=== PATIENT | female | born 1940 | race Caucasian/White ===

== ENCOUNTER 2023-06-25 14:28 | Outpatient (AMB) | payer MEDICARE, OTHER, SELFPAY ==
--- NOTE | 2023-06-25 15:29 | AM.OFFWIN_ITS ---
Intake Intake Visit Reasons: EST/possiple UTI? (lobby) Intake Note: pt is here for c/o possible uti. patient refused vitals and unabe to give urine sample Patient Tobacco Use Status: Never used Tobacco Allergies camphor [CAMPHOR] Allergy (Severe, Verified 06/26/23 06:10) SWELLING, swelling glands, extreme dizziness, swelling glands, extreme dizziness Antihistamines - Alkylamine [ANTIHISTAMINES - ALKYLAMINE] Allergy (Unknown, Verified 06/26/23 06:10) TACHYCARDIA erythromycin base [ERYTHROMYCIN BASE] Allergy (Unknown, Verified 06/26/23 06:10) SWELLING NSAIDS (Non-Steroidal Anti-Inflamma [NSAIDS (NON-STEROIDAL ANTI-INFLAMMA] Allergy (Unknown, Verified 06/26/23 06:10) NOT TO TAKE penicillin V Allergy (Unknown, Verified 06/26/23 06:10) itching Penicillins [PENICILLINS] Allergy (Unknown, Verified 06/26/23 06:10) ITCHY ALL ANTIBIOTICS Allergy (Unknown, Uncoded 06/26/23 06:10) UNKNOWN All antibiotics Allergy (Unknown, Uncoded 06/26/23 06:10) caused Meniere's disease, very probable cause of temporal ar antihistamine Allergy (Unknown, Uncoded 06/26/23 06:10) contraindicated with tachycardia Erythromycin Allergy (Unknown, Uncoded 06/26/23 06:10) face swelling NSAIDs Allergy (Unknown, Uncoded 06/26/23 06:10) contraindicated with Meniere's disease Medication List - Last Reconciled 06/26/23 by Julio Laurent MD diclofenac sodium 1% 2 - 3 grams topical BID PRN epinephrine IM fluticasone propionate 50 mcg/actuation 1 - 2 sprays intranasal DAILY PRN Do you need a note to return to daycare/school/sports/work: Yes PFSH Medical History (Updated 11/22/22 @ 06:48 by Bertha Burger, KELECHI) Smoker Chronic back pain Coronary artery disease Peripheral artery disease Lung nodules SVT (supraventricular tachycardia) Allergic rhinitis Meniere disease Temporal arteritis Surgical History (Updated 11/22/22 @ 06:48 by Bertha Burger, KELECHI) History of dental surgery History of colonoscopy Social History Patient Tobacco Use Status: Never used Tobacco Results AMB Urinalysis, Automated UA Leukoctes 15 Noa/uL Last Edit by Dari Adam, RANDI on 06/25/23 16:24 UA Nitrite Negative Last Edit by Dari Adam, RANDI on 06/25/23 16:24 UA Urobilinogen 0.2 mg/dL Last Edit by Dari Adam, BACTERIOLOGY RESEARCH ASSISTANT on 06/25/23 16:24 UA Protein 0 mg/dL Last Edit by Dari Adam, BACTERIOLOGY RESEARCH ASSISTANT on 06/25/23 16:24 UA pH 6.0 Last Edit by Dari Adam, BACTERIOLOGY RESEARCH ASSISTANT on 06/25/23 16:24 UA Blood 0 Carlos/uL Last Edit by Dari Adam, BACTERIOLOGY RESEARCH ASSISTANT on 06/25/23 16:24 UA Specific [place] 1.015 Last Edit by Dari Adam, RANDI on 06/25/23 16:24 UA Ketone Negative Last Edit by Dari Adam, BACTERIOLOGY RESEARCH ASSISTANT on 06/25/23 16:24 UA Bilirubin 0 mg/dL Last Edit by Dari Adam, BACTERIOLOGY RESEARCH ASSISTANT on 06/25/23 16:24 UA Glucose 0 mg/dL Last Edit by Dari Adam, BACTERIOLOGY RESEARCH ASSISTANT on 06/25/23 16:24 Results Reviewed Results Reviewed: Laboratory Last Values Urine pH (Auto) 6.0 06/25/23 16:22 Specific [place] (Auto) 1.015 06/25/23 16:22 Urine Protein (Auto) 0 mg/dL 06/25/23 16:22 Glucose (UA)(Auto) 0 mg/dL 06/25/23 16:22 Urine Ketones (Auto) Negative 06/25/23 16:22 Urine Blood (Auto) 0 Carlos/uL 06/25/23 16:22 Urine Nitrite (Auto) Negative 06/25/23 16:22 Urine Bilirubin (Auto) 0 mg/dL 06/25/23 16:22 Urine Urobilinogen (Auto) 0.2 mg/dL 06/25/23 16:22 Leukocyte Esterase (Auto) 15 Noa/uL 06/25/23 16:22 Assessment & Plan Assessment & Plan Orders: Orders AMB Urinalysis Automated 06/25/23 Z13.9 - Encounter for screening, unspecified Coding
--- NOTE | 2023-06-25 15:38 | AM.OFFWIN_ITS ---
Intake Intake Visit Reasons: EST/possiple UTI? (alon) Intake Note: pt is here today for possible UTI started Patient Tobacco Use Status: Never used Tobacco Allergies camphor [CAMPHOR] Allergy (Severe, Verified 06/26/23 06:10) SWELLING, swelling glands, extreme dizziness, swelling glands, extreme dizziness Antihistamines - Alkylamine [ANTIHISTAMINES - ALKYLAMINE] Allergy (Unknown, Verified 06/26/23 06:10) TACHYCARDIA erythromycin base [ERYTHROMYCIN BASE] Allergy (Unknown, Verified 06/26/23 06:10) SWELLING NSAIDS (Non-Steroidal Anti-Inflamma [NSAIDS (NON-STEROIDAL ANTI-INFLAMMA] Allergy (Unknown, Verified 06/26/23 06:10) NOT TO TAKE penicillin V Allergy (Unknown, Verified 06/26/23 06:10) itching Penicillins [PENICILLINS] Allergy (Unknown, Verified 06/26/23 06:10) ITCHY ALL ANTIBIOTICS Allergy (Unknown, Uncoded 06/26/23 06:10) UNKNOWN All antibiotics Allergy (Unknown, Uncoded 06/26/23 06:10) caused Meniere's disease, very probable cause of temporal ar antihistamine Allergy (Unknown, Uncoded 06/26/23 06:10) contraindicated with tachycardia Erythromycin Allergy (Unknown, Uncoded 06/26/23 06:10) face swelling NSAIDs Allergy (Unknown, Uncoded 06/26/23 06:10) contraindicated with Meniere's disease Medication List - Last Reconciled 06/26/23 by Julio Laurent MD diclofenac sodium 1% 2 - 3 grams topical BID PRN epinephrine IM fluticasone propionate 50 mcg/actuation 1 - 2 sprays intranasal DAILY PRN Do you need a note to return to daycare/school/sports/work: No HPI EST/possiple UTI? (alon) HPI Details 82 yr old female presents to the office for a sick visit. She reports she has not seen her PCP for a few years. Reporting increasing frequency of urination since the past few days. She reports that it happens in spurts. Goes to the bathroom often for a few hours and then sx subside. Not waking up at night. No fever or chills. No burning sx. Low back pain. [facility] Medical History (Updated 11/22/22 @ 06:48 by Bertha Burger RN) Smoker Chronic back pain Coronary artery disease Peripheral artery disease Lung nodules SVT (supraventricular tachycardia) Allergic rhinitis Meniere disease Temporal arteritis Surgical History (Updated 11/22/22 @ 06:48 by Bertha Burger RN) History of dental surgery History of colonoscopy Social History Patient Tobacco Use Status: Never used Tobacco Physical Exam Const General: cooperative and healthy appearing Nutritional Appearance: well nourished Orientation/consciousness: patient oriented x3 Limitations: no limitations HEENT Head: Yes normal to inspection Eyes General: appearance normal, both eyes and all related structures Neck Neck: Yes normal visual inspection Chest Chest palpation & inspection: normal palpation of entire chest wall Resp Effort & Inspection: normal respiratory effort General: Yes bladder normal to inspection, Yes bladder normal to palpation and Yes no CVA tenderness Bimanual exam- vagina & uterus: bladder normal to palpation Back/Spine/Pelvis Back: no CVA tenderness Neuro General: patient oriented x3 Results AMB Urinalysis, Automated UA Leukoctes 15 Noa/uL Last Edit by Dari Adam CMA on 06/25/23 16:24 UA Nitrite Negative Last Edit by Dari Adam CMA on 06/25/23 16:24 UA Urobilinogen 0.2 mg/dL Last Edit by Dari Adam CMA on 06/25/23 16:24 UA Protein 0 mg/dL Last Edit by Dari Adam CMA on 06/25/23 16:24 UA pH 6.0 Last Edit by Dari Adam CMA on 06/25/23 16:24 UA Blood 0 Carlos/uL Last Edit by Dari Adam CMA on 06/25/23 16:24 UA Specific [place] 1.015 Last Edit by Dari Adam CMA on 06/25/23 16:24 UA Ketone Negative Last Edit by Dari Adam CMA on 06/25/23 16:24 UA Bilirubin 0 mg/dL Last Edit by Dari Adam CMA on 06/25/23 16:24 UA Glucose 0 mg/dL Last Edit by Dari Adam CMA on 06/25/23 16:24 Results Reviewed Results Reviewed: Laboratory Last Values Urine pH (Auto) 6.0 06/25/23 16:22 Specific [place] (Auto) 1.015 06/25/23 16:22 Urine Protein (Auto) 0 mg/dL 06/25/23 16:22 Glucose (UA)(Auto) 0 mg/dL 06/25/23 16:22 Urine Ketones (Auto) Negative 06/25/23 16:22 Urine Blood (Auto) 0 Carlos/uL 06/25/23 16:22 Urine Nitrite (Auto) Negative 06/25/23 16:22 Urine Bilirubin (Auto) 0 mg/dL 06/25/23 16:22 Urine Urobilinogen (Auto) 0.2 mg/dL 06/25/23 16:22 Leukocyte Esterase (Auto) 15 Noa/uL 06/25/23 16:22 Assessment & Plan Assessment & Plan (1) Urinary tract infection: Code(s): N39.0 - Urinary tract infection, site not specified Plan: Urinalysis shows only a few WBC. Patient is very reluctant to start antibiotics for a variety of reasons. I advised her to increase fluid intake. She should follow up with her PCP and get bw done. Orders: Orders AMB Urinalysis Automated 06/25/23 Z13.9 - Encounter for screening, unspecified Coding Level of Care Code Est Pt Level 3 (05875) Diagnoses Urinary tract infection N39.0
== END 2023-06-25 16:32 | disposition home or self-care (01) ==
PROVIDERS: PCP Internal Medicine; Visit Provider Internal Medicine
DX: R35.0 Frequency of micturition (principal)
CPT/HCPCS: 81003; 99213

== ENCOUNTER 2023-07-03 07:52 | Outpatient (AMB) | payer MEDICARE, OTHER, SELFPAY ==
[2023-07-03 08:07] VITALS: BP 138/80; PULSE 105; O2SAT 97; BMI 26.0
--- NOTE | 2023-07-03 08:07 | A.OFFPC_ITS ---
Vital Signs 07/03/23 08:07 07/03/23 08:56 Height 5 ft 1.5 in Weight 140 lb BMI 26.0 BP 138/80 Blood Pressure Location Lt brachial Position Sitting Pulse 105 H 88 Pulse Source Pulse Oximeter Palpation Pulse Oximetry (%) 97 Oxygen Delivery Method Room Air Intake Visit Reasons: New PT F/U from Walk-In visit Intake Note: Pt is here today as a New Patient to est care to f/u from [place] Allergies camphor [CAMPHOR] Allergy (Severe, Verified 07/08/23 16:31) SWELLING, swelling glands, extreme dizziness, swelling glands, extreme dizziness Antihistamines - Alkylamine [ANTIHISTAMINES - ALKYLAMINE] Allergy (Unknown, Verified 07/08/23 16:31) TACHYCARDIA erythromycin base [ERYTHROMYCIN BASE] Allergy (Unknown, Verified 07/08/23 16:31) SWELLING NSAIDS (Non-Steroidal Anti-Inflamma [NSAIDS (NON-STEROIDAL ANTI-INFLAMMA] Allergy (Unknown, Verified 07/08/23 16:31) NOT TO TAKE penicillin V Allergy (Unknown, Verified 07/08/23 16:31) itching Penicillins [PENICILLINS] Allergy (Unknown, Verified 07/08/23 16:31) ITCHY ALL ANTIBIOTICS Allergy (Unknown, Uncoded 07/08/23 16:31) UNKNOWN All antibiotics Allergy (Unknown, Uncoded 07/08/23 16:31) caused Meniere's disease, very probable cause of temporal ar antihistamine Allergy (Unknown, Uncoded 07/08/23 16:31) contraindicated with tachycardia Erythromycin Allergy (Unknown, Uncoded 07/08/23 16:31) face swelling NSAIDs Allergy (Unknown, Uncoded 07/08/23 16:31) contraindicated with Meniere's disease Medication List - Last Reconciled 07/08/23 by GIA Jesus epinephrine IM Tobacco use date assessed: 07/03/23 Fall risk assessment: No Falls in past year Last assessed Fall Risk: 07/03/23 Dental Screening Dental Screen Date: 07/03/23 Did you have a dental visit in the last 12 months?: No Was dental information given to patient?: Patient declined HPI HPI Comments History of Present Illness Details Patient is a 82-year-old female in today to establish care. She was last seen in the walk-in 2 weeks prior to this appointment with symptoms of increased urinary frequency, and suprapubic pain. Patient declined medications at the time, instead wanted to utilize natural techniques drinking water and cranberry juice. At the time of appointment today the patient states she has no more urinary complaints. She did state intermittent diarrhea and constipation, and has a history of IBS. At the time of appointment patient does not want immunizations, colonoscopy, OBGYN, bone density, mammogram. Patient states she is interested in meeting with a dietitian to go over non inflammatory diet. Her last appointment with a primary care provider was 2 years prior. [facility] Medical History (Updated 07/08/23 @ 16:35 by GIA Jesus) Smoker Chronic back pain Coronary artery disease Peripheral artery disease Lung nodules SVT (supraventricular tachycardia) Allergic rhinitis Meniere disease Temporal arteritis Surgical History History of dental surgery History of colonoscopy Social History Housing: Apartment Patient Tobacco Use Status: Current everyday Tobacco user Tobacco use type: Cigarette e-Cigarette/Vaping Use: Never Used service: No Current occupational status: retired Cognitive needs: No Hearing needs: No Vision needs: Yes Questionnaire PHQ-9 Over the last 2 weeks, how often have you been bothered by any of the following problems? 1. Little interest or pleasure in doing things: not at all 2. Feeling down, depressed, or hopeless: not at all 3. Trouble falling or staying asleep, or sleeping too much: not at all 4. Feeling tired or having little energy: not at all 5. Poor appetite or overeating: not at all 6. Feeling bad about yourself - or that you are a failure or have let yourself or your family down: not at all 7. Trouble concentrating on things, such as reading the newspaper or watching television: not at all 8. Moving or speaking so slowly that other people could have noticed. Or the opposite - being so fidgety or restless that you have been moving around a lot more than usual: not at all 9. Thoughts that you would be better off or of hurting yourself in some way: not at all Total score: 0 Depression Screening Interpretation: Negative Depression Screening Done: Yes 01643 - PHQ-9 Billing: Yes Source: Developed by Drs. Valeriy Hernandez, Amina Plasencia, Sharan Pelletier and colleagues, with an educational ana from [employer]. Thrive Questionnaire Date Thrive assessed: 07/03/23 I am a: Patient What is your living situation today?: I have a steady place to live Within the past 12 months, did the food you bought not last and you didn't have the money to get more?: Never true Within the past 12 months, did you worry whether your food would run out before you got money to buy more?: Never true Do you have trouble paying for medicines?: No Do you have trouble getting transportation to medical appointments?: No Do you have trouble paying your heating and electricity bill?: No Do you have trouble taking care of your child, family member or friend?: No Do you have trouble with day-to-day activities such as bathing, preparing meals, shopping, managing finances, etc.?: No Are you currently unemployed and looking for a job?: No Are you interested in more education?: No AUDIT C Alcohol Use Questionnaire (AUDIT-C) 1. How often do you have a drink containing alcohol?: Never Total Score: 0 EDEL-7 AMB Questionnaire EDEL-7 Date EDEL - 7 assessed: 07/03/23 Feeling nervous, anxious, or on edge: 0 = Not at all Not being able to stop or control worryin = Not at all Worrying too much about different things: 0 = Not at all Trouble relaxin = Not at all Being so restless that it is hard to sit still: 0 = Not at all Becoming easily annoyed or irritable: 0 = Not at all Feeling afraid as if something awful might happen: 0 = Not at all Total EDEL-7 score (0-4 normal; 5-9 mild; 10-14 moderate; 15-21 severe): 0 Source: Developed by Drs. Valeriy Hernandez, Amina Plasencia, Sharan Pelletier and colleagues, with an educational ana from [employer]. EDEL-7 Assessment Billing EDEL-7 Assessment Tool: EDEL-7 Assessment 49781 Review of Systems Const Details: Constitutional : No Weight loss, No Fever, No Chills, No Fatigue, No Malaise ENT/Mouth : No sore throat, No Rhinorrhea. Patient Admits hearing loss due to meniere's disease. Eyes: No Eye Pain, No Swelling, No Redness Cardiovascular : No Chest Pain, No SOB, No Dyspnea on Exertion, No Orthopnea, No Edema, No Palpitations Respiratory : No Cough, No Sputum, No Wheezing Gastrointestinal : No Nausea, No Vomiting, Occasional Diarrhea, Ocassional Constipation, No abdominal Pain, No Hematochezia, No Melena Genitourinary : No Dysuria, No Urinary Frequency, No Hematuria, Musculoskeletal : No joint pain, No Myalgias, No Joint Swelling Skin : No Skin Lesions, No rash Neuro : No Weakness, No Numbness, No Dizziness, No Headache Psych : No Anxiety/Panic, No Depression Heme/Lymph: No Bruising, No Bleeding,No Lymphadenopathy Endocrine : No Polyuria, No Polydipsia All other systems reviewed and are negative Physical exam (Primary Care) Vital Signs: Last Vital Signs Pulse 88 07/03/23 08:56 BP 138/80 07/03/23 08:07 Pulse Ox 97 07/03/23 08:07 Oxygen Delivery Method Room Air 07/03/23 08:07 Care Plan Goal for BP management: Patient states that her blood pressure at home is usually lower. Patient instructed to take blood pressure readings at home. Next steps: The patient had pulse recheck, 88 beats per minute. BMI result Body Mass Index 26.0 Tobacco/Smoking Status: Tobacco use Status Tobacco use date assessed 07/03/23 07/03/23 08:14 Patient Tobacco Use Status Current everyday Tobacco 07/03/23 08:14 Tobacco use type Cigarette 07/03/23 08:14 e-Cigarette/Vaping Use Never Used 07/03/23 08:14 PHQ-9: PHQ-9 Score PHQ-9: Total score 0 07/08/23 09:41 Depression Screening Interpretation: Negative Thrive Assessment: Date of Thrive Assessment Date Thrive assessed 07/03/23 07/03/23 08:14 Const Other: Appearance: Alert.? Oriented X3.? No acute distress.? Head: Normocephalic, atraumatic, no step-offs or deformities Eyes: Pupils equal, round and reactive to light.? ENT: Pharynx normal.?TM intact and pearly arnada. Neck: Normal inspection.? Neck supple.? CVS: Normal heart rate and rhythm.? Pulses normal.? Respiratory: No respiratory distress.? Breath sounds normal.? Abdomen: Soft and nontender.? Skin: Skin warm and dry.? Normal skin color.? Normal skin turgor.? Extremities: No lower extremity edema.? Back: No midline tenderness, no CVA tenderness bilaterally Neuro: Oriented X 3.? No motor deficit.? No sensory deficit. CN 2-12 intact Chest: Declined Breast Exam. General: cooperative and no acute distress Orientation/consciousness: patient oriented x3 Limitations: no limitations Chest Other: Declined breast exam. Neuro General: patient oriented x3 Psych Insight: Good insight present (Psych) Judgement: Good judgement present (Psych) Results Reviewed Results Reviewed: Will call patient with lab results. Assessment and Plan Assessment & Plan (1) IBS (irritable bowel syndrome): Comment: Patient will have labs drawn CBC, CMP, lipid profile, TSH, T4, UA. The patient will have referral to dietary counseling for information session on low inflammation diet. Patient has history of IBS, and states she is having occasional diarrhea and occasional constipation. Patient does not like to utilize medications. Code(s): K58.9 - Irritable bowel syndrome without diarrhea Qualifiers: Irritable bowel syndrome type: unspecified Qualified Code(s): K58.9 - Irritable bowel syndrome without diarrhea Orders: Orders Comprehensive Met. Panel 07/03/23 N39.0 - Urinary tract infection, site not specified UA CC w/rflx Micro + Cult 07/03/23 N39.0 - Urinary tract infection, site not specified Lipid Panel 07/03/23 R53.83 - Other fatigue Complete Blood Count Auto Diff 07/03/23 R53.83 - Other fatigue Vitamin D 25-OH (D2 and D3) 07/03/23 R53.83 - Other fatigue TSH reflex Free T4 07/03/23 R53.83 - Other fatigue Referrals Nutrition/Dietitian Referral K58.9 - Irritable bowel syndrome without diarrhea Review Patient declined Mammogram: 07/08/23 Declined Pap Smear: 07/08/23 Patient declined Colonoscopy: 07/08/23 Patient declined Colon Cancer Screen Lab: 07/08/23 Coding Level of Care Code New Pt Level 4 (28354) Diagnoses Irritable bowel syndrome, unspecified type K58.9 Irritable bowel syndrome type: unspecified Additional Codes EDEL-7 Assessment Billing - EDEL-7 Assessment Tool: EDEL-7 Assessment 80577 ([id number]) Time Spent (min) 30
[2023-07-03 08:56] VITALS: PULSE 88
== END 2023-07-03 10:45 | disposition home or self-care (01) ==
PROVIDERS: PCP Internal Medicine; Visit Provider Nurse Practitioner Primary Care
DX: K58.9 Irritable bowel syndrome, unspecified (principal)
CPT/HCPCS: 99204

== ENCOUNTER 2023-10-10 13:19 | Outpatient (AMB) | payer MEDICARE, OTHER, SELFPAY ==
--- NOTE | 2023-10-10 13:23 | MHC.PC.OV ---
Vital Signs 10/10/23 13:24 10/10/23 14:06 Height 5 ft 1.5 in Weight 137 lb 8 oz BMI 25.6 Pulse 102 H 92 Pulse Source Pulse Oximeter Pulse Oximeter Pulse Oximetry (%) 95 Oxygen Delivery Method Room Air Intake Visit Reasons: pt needs referrals Intake Note: Pt is here for referrals pt refused her BP Allergies camphor [CAMPHOR] Allergy (Severe, Verified 10/10/23 13:52) SWELLING, swelling glands, extreme dizziness, swelling glands, extreme dizziness Antihistamines - Alkylamine [ANTIHISTAMINES - ALKYLAMINE] Allergy (Unknown, Verified 10/10/23 13:52) TACHYCARDIA erythromycin base [ERYTHROMYCIN BASE] Allergy (Unknown, Verified 10/10/23 13:52) SWELLING NSAIDS (Non-Steroidal Anti-Inflamma [NSAIDS (NON-STEROIDAL ANTI-INFLAMMA] Allergy (Unknown, Verified 10/10/23 13:52) NOT TO TAKE penicillin V Allergy (Unknown, Verified 10/10/23 13:52) itching Penicillins [PENICILLINS] Allergy (Unknown, Verified 10/10/23 13:52) ITCHY ALL ANTIBIOTICS Allergy (Unknown, Uncoded 10/10/23 13:52) UNKNOWN All antibiotics Allergy (Unknown, Uncoded 10/10/23 13:52) caused Meniere's disease, very probable cause of temporal ar antihistamine Allergy (Unknown, Uncoded 10/10/23 13:52) contraindicated with tachycardia Erythromycin Allergy (Unknown, Uncoded 10/10/23 13:52) face swelling NSAIDs Allergy (Unknown, Uncoded 10/10/23 13:52) contraindicated with Meniere's disease Medication List - Last Reconciled 10/10/23 by GIA Jesus cranberry extract 425 mg PO DAILY d-mannose mg PO Tobacco use date assessed: 10/10/23 Fall risk assessment: No Falls in past year Last assessed Fall Risk: 10/10/23 Dental Screening Dental Screen Date: 10/10/23 Did you have a dental visit in the last 12 months?: Yes Did you have a dental problem in the last 6 months where you did not have access to dental care?: No Was dental information given to patient?: Patient has dentist HPI HPI Comments History of Present Illness Details Patient is a 82-year-old female in today for sick visit. Patient has complained of chronic UTI and incontinence. This patient refuses to use antibiotic due to her Meniere's disease, she states this is not negotiable. Patient is refusing blood pressure measurements in office today. Patient is here with chronic UTI. She recently saw technologist development and brought labs from that visit which demonstrated nitrites and culture of Klebsiella pneumonia. Patient also suffers from urinary incontinence likely related to chronic UTI. Patient denies fevers, dizziness, chest pain, shortness a breath, nausea, vomiting. Will refer to uro smocker. Patient has history of irritable bowel syndrome. She treats often treats this with probiotics which she has stop taking 4 weeks prior to appointment. Her symptoms have improved since stopping the probiotic, still has intermittent gas and diarrhea. Will order GI panel and refer to Gastroenterology. Will also order a full panel of labs. Patient will get referral to GI. [facility] Medical History Smoker Chronic back pain Coronary artery disease Peripheral artery disease Lung nodules SVT (supraventricular tachycardia) Allergic rhinitis Meniere disease Temporal arteritis Surgical History History of dental surgery History of colonoscopy Social History Housing: Apartment Patient Tobacco Use Status: Current everyday Tobacco user Tobacco use type: Cigarette Cigarettes Per Day: 12 e-Cigarette/Vaping Use: Never Used Second Hand Smoke Exposure: No service: No Current occupational status: retired Cognitive needs: No Hearing needs: No Vision needs: Yes Questionnaire PHQ-9 Over the last 2 weeks, how often have you been bothered by any of the following problems? 1. Little interest or pleasure in doing things: not at all 2. Feeling down, depressed, or hopeless: not at all 3. Trouble falling or staying asleep, or sleeping too much: several days 4. Feeling tired or having little energy: not at all 5. Poor appetite or overeating: not at all 6. Feeling bad about yourself - or that you are a failure or have let yourself or your family down: not at all 7. Trouble concentrating on things, such as reading the newspaper or watching television: not at all 8. Moving or speaking so slowly that other people could have noticed. Or the opposite - being so fidgety or restless that you have been moving around a lot more than usual: not at all 9. Thoughts that you would be better off or of hurting yourself in some way: not at all Total score: 1 Depression Screening Interpretation: Negative Depression Screening Done: Yes [id number] - PHQ-9 Billing: Yes Source: Developed by Drs. Valeriy Hernandez, Amina Plasencia, Sharan Pelletier and colleagues, with an educational ana from [employer]. Thrive Questionnaire Date Thrive assessed: 10/10/23 I am a: Patient What is your living situation today?: I have a steady place to live Within the past 12 months, did the food you bought not last and you didn't have the money to get more?: Never true Within the past 12 months, did you worry whether your food would run out before you got money to buy more?: Never true Do you have trouble paying for medicines?: No Do you have trouble getting transportation to medical appointments?: No Do you have trouble paying your heating and electricity bill?: No Do you have trouble taking care of your child, family member or friend?: No Do you have trouble with day-to-day activities such as bathing, preparing meals, shopping, managing finances, etc.?: No Are you currently unemployed and looking for a job?: No Are you interested in more education?: Yes THRIVE Score: 0 AUDIT C Alcohol Use Questionnaire (AUDIT-C) 1. How often do you have a drink containing alcohol?: Never Total Score: 0 EDEL-7 AMB Questionnaire EDEL-7 Date EDEL - 7 assessed: 10/10/23 Feeling nervous, anxious, or on edge: 0 = Not at all Not being able to stop or control worryin = Not at all Worrying too much about different things: 0 = Not at all Trouble relaxin = Not at all Being so restless that it is hard to sit still: 0 = Not at all Becoming easily annoyed or irritable: 0 = Not at all Feeling afraid as if something awful might happen: 0 = Not at all Total EDEL-7 score (0-4 normal; 5-9 mild; 10-14 moderate; 15-21 severe): 0 Source: Developed by Drs. Valeriy Hernandez, Amina Plasencia, Sharan Pelletier and colleagues, with an educational ana from [employer]. EDEL-7 Assessment Billing EDEL-7 Assessment Tool: EDEL-7 Assessment 60086 Review of Systems Const All systems reviewed & are unremarkable except as noted in HPI and below GI Reports bloating, Reports dyspepsia and Reports diarrhea Reports urinary incontinence and Reports urinary urgency Physical exam (Primary Care) Vital Signs: Last Vital Signs Pulse 102 H 10/10/23 13:24 Pulse Ox 95 10/10/23 13:24 Oxygen Delivery Method Room Air 10/10/23 13:24 Care Plan Goal for BP management: Patient would not allow providers to take blood pressure measurements. BMI result Body Mass Index 25.6 Tobacco/Smoking Status: Tobacco use Status Tobacco use date assessed 10/10/23 10/10/23 13:30 Patient Tobacco Use Status Current everyday Tobacco 10/10/23 13:23 Tobacco use type Cigarette 10/10/23 13:23 e-Cigarette/Vaping Use Never Used 10/10/23 13:23 Depression Screening Interpretation: Negative Thrive Assessment: Date of Thrive Assessment Date Thrive assessed 07/03/23 10/10/23 13:23 Const Other: Appearance: Alert.? Oriented X3.? No acute distress.? Head: Normocephalic, atraumatic, Neck: Normal inspection.? Neck supple.? CVS: Normal heart rate and rhythm.? Respiratory: No respiratory distress.? Breath sounds normal.? Abdomen: Soft and nontender.? Neuro: Oriented X 3.? No motor deficit.? No sensory deficit. CN 2-12 intact Assessment and Plan Assessment & Plan (1) IBS (irritable bowel syndrome): Comment: Patient will have labs drawn CBC, CMP, lipid profile, TSH, T4, UA, GI series. Will refer to GI. Patient does not like to utilize medications. Code(s): K58.9 - Irritable bowel syndrome without diarrhea Qualifiers: Irritable bowel syndrome type: unspecified Qualified Code(s): K58.9 - Irritable bowel syndrome without diarrhea Plan: Patient has been improving since she discontinued use of probiotics. Will follow-up with lab results. (2) Chronic UTI: Comment: Patient has issues of chronic UTI and urinary incontinence. Will draw UA. Patient will get referral to urogynecologist. Patient refuses antibiotics Code(s): N39.0 - Urinary tract infection, site not specified Plan: Take your medications as prescribed. If you were prescribed antibiotics today, it is important that you take your medication to their entirety, do not skip any doses, do not finish them early. Follow-up with your primary care provider this week. Return to the emergency department with new or worsening symptoms. Such as fevers, chills, chest pain, shortness of breath, nausea, vomiting, dizziness, headache, vision changes, lethargy In case of emergency call 911 Plan Patient will follow-up in 2-3 months. Orders: Orders GI Panel Today K58.9 - Irritable bowel syndrome without diarrhea Hemoglobin A1c Today Z13.1 - Encounter for screening for diabetes mellitus Referrals Urology Referral N39.0 - Urinary tract infection, site not specified Coding Level of Care Code Est Pt Level 4 (04094) Diagnoses Irritable bowel syndrome, unspecified type K58.9 Irritable bowel syndrome type: unspecified Chronic UTI N39.0 Additional Codes EDEL-7 Assessment Billing - EEDL-7 Assessment Tool: EDEL-7 Assessment 70546 ([id number]) Time Spent (min) 35
[2023-10-10 13:24] VITALS: PULSE 102; O2SAT 95; BMI 25.6
[2023-10-10 14:06] VITALS: PULSE 92
== END 2023-10-10 13:54 | disposition home or self-care (01) ==
PROVIDERS: PCP Internal Medicine; Visit Provider Nurse Practitioner Primary Care
DX: K58.9 Irritable bowel syndrome, unspecified (principal); N39.0 Urinary tract infection, site not specified
CPT/HCPCS: 99214

== ENCOUNTER 2023-10-10 13:56 | Outpatient (REF) | payer MEDICARE, OTHER, SELFPAY ==
[2023-10-10 16:02] LABS: MANUAL DIFF FLAG NO
[2023-10-10 16:12] LABS: Basophils Absolute Auto 0.1 X10*3/uL (0.0-0.2); Basophils Percent Auto 0.7 % (0-2); Eosinophils Absolute Auto 0.1 X10*3/uL (0.0-0.4); Eosinophils Percent Auto 1.8 % (0-4); Hematocrit 41.4 % (37.0-47.0); Hemoglobin 13.7 g/dl (12.0-16.0); Imm Gran Abs Auto 0.02 X10*3/uL (0.00-0.03); Imm Gran Pct Auto 0.3 % (0.0-0.4); Lymphocytes Absolute Auto 1.2 X10*3/uL (1.2-4.9); Lymphocytes Percent Auto 16.6 % (20-40); Mean Corpuscular HGB Conc 33.1 g/dl (31.0-35.0); Mean Corpuscular Hemoglobin 30.9 pg (27.0-33.0); Mean Corpuscular Volume 93.5 fL (80.0-98.0); Monocytes Absolute Auto 0.6 X10*3/uL (0.1-1.2); Neutrophils Absolute Auto 5.4 x10*3/uL (2.0-8.3); Neutrophils Percent Auto 72.6 % (45-73); Platelet Count 311 X10*3/uL (160-400); Red Blood Count 4.43 X10*6/uL (4.20-5.50); Red Cell Distribution Width 16.9 % (11.0-16.0); White Blood Count 7.4 X10*3/uL (4.8-10.8)
[2023-10-10 16:20] LABS: Estimated Average Glucose 97 mg/dL
[2023-10-10 16:38] LABS: Alanine Aminotransferase 12 U/L (0-31); Albumin Level 4.1 g/dL (3.5-5.0); Alkaline Phosphatase 140 U/L (39-117); Anion Gap 14 (12-20); Aspartate Amino Transferase 17 U/L (5-31); Bilirubin Total 0.5 mg/dL (0.0-1.0); Blood Urea Nitrogen 15 mg/dL (9-16); Calcium 9.6 mg/dL (8.4-10.2); Carbon Dioxide 26 mmol/L (22-29); Chloride 107 mmol/L (96-108); Cholesterol 151 mg/dL (<200); Estimated Glomerular Filt Rate > 60; Glucose Random 101 mg/dL (60-115); HDL Cholesterol 64 mg/dL (>40); LDL Cholesterol Calculated 76 mg/dL (<100); Potassium 4.3 mmol/L (3.3-5.1); Sodium 143 mmol/L (135-145); Total Protein 7.1 g/dL (6.5-8.0); Triglycerides 56 mg/dL (<150)
[2023-10-10 16:42] LABS: TSH reflex Free T4 0.89 uIU/mL (0.32-4.0)
[2023-10-10 18:36] LABS: Erythrocyte Sedimentation Rate 5 MM/HR (0-20)
[2023-10-11 15:42] LABS: CRP High Sensitivity 3.1 mg/L
[2023-10-15 15:09] LABS: Vitamin D 25-OH, D2 <4 ng/mL; Vitamin D 25-OH, D3 36 ng/mL; Vitamin D 25-OH, Total 36 ng/mL (30-100)
== END 2023-10-10 13:57 | disposition home or self-care (01) ==
LOC: HO.HMGCLDS 13:56
PROVIDERS: PCP Nurse Practitioner Primary Care; Visit Provider Nurse Practitioner Primary Care
DX: N39.0 Urinary tract infection, site not specified (principal); R53.83 Other fatigue; K58.9 Irritable bowel syndrome, unspecified; Z13.1 Encounter for screening for diabetes mellitus
CPT/HCPCS: 36415; 80053; 80061; 82306; 83036; 84443; 85025; 85652; 86141

== ENCOUNTER 2023-12-30 13:39 | Outpatient (AMB) | payer MEDICARE, OTHER, SELFPAY ==
--- NOTE | 2023-12-30 13:43 | MHC.OFFWIV ---
Intake Vital Signs 12/30/23 13:44 Height 5 ft 1.5 in Intake Visit Reasons: 3M F/U Intake Note: pt here for 3 mo f/u frequent UTIs Patient Tobacco Use Status: Current everyday Tobacco user Allergies camphor [CAMPHOR] Allergy (Severe, Verified 12/30/23 13:44) SWELLING, swelling glands, extreme dizziness, swelling glands, extreme dizziness Antihistamines - Alkylamine [ANTIHISTAMINES - ALKYLAMINE] Allergy (Unknown, Verified 12/30/23 13:44) TACHYCARDIA erythromycin base [ERYTHROMYCIN BASE] Allergy (Unknown, Verified 12/30/23 13:44) SWELLING NSAIDS (Non-Steroidal Anti-Inflamma [NSAIDS (NON-STEROIDAL ANTI-INFLAMMA] Allergy (Unknown, Verified 12/30/23 13:44) NOT TO TAKE penicillin V Allergy (Unknown, Verified 12/30/23 13:44) itching Penicillins [PENICILLINS] Allergy (Unknown, Verified 12/30/23 13:44) ITCHY ALL ANTIBIOTICS Allergy (Unknown, Uncoded 12/30/23 13:44) UNKNOWN All antibiotics Allergy (Unknown, Uncoded 12/30/23 13:44) caused Meniere's disease, very probable cause of temporal ar antihistamine Allergy (Unknown, Uncoded 12/30/23 13:44) contraindicated with tachycardia Erythromycin Allergy (Unknown, Uncoded 12/30/23 13:44) face swelling NSAIDs Allergy (Unknown, Uncoded 12/30/23 13:44) contraindicated with Meniere's disease PFSH Medical History Smoker Chronic back pain Coronary artery disease Peripheral artery disease Lung nodules SVT (supraventricular tachycardia) Allergic rhinitis Meniere disease Temporal arteritis Surgical History History of dental surgery History of colonoscopy Social History Housing: Apartment Patient Tobacco Use Status: Current everyday Tobacco user Tobacco use type: Cigarette Cigarettes Per Day: 12 e-Cigarette/Vaping Use: Never Used Second Hand Smoke Exposure: No service: No Current occupational status: retired Cognitive needs: No Hearing needs: No Vision needs: Yes Coding
[2023-12-30 13:44] VITALS: PULSE 109; O2SAT 92; BMI 24.7
--- NOTE | 2023-12-30 13:46 | A.OFFPC_ITS ---
Vital Signs 12/30/23 13:44 Height 5 ft 1.5 in Weight 133 lb BMI 24.7 BP not taken reason Patient Refused Pulse 109 H Pulse Source Pulse Oximeter Pulse Oximetry (%) 92 Oxygen Delivery Method Room Air Intake Visit Reasons: 3M F/U Intake Note: pt here for 3 mo f/u frequent UTIs Accompanied by: Self / Same As Patient Allergies camphor [CAMPHOR] Allergy (Severe, Verified 12/30/23 14:13) SWELLING, swelling glands, extreme dizziness, swelling glands, extreme dizziness Antihistamines - Alkylamine [ANTIHISTAMINES - ALKYLAMINE] Allergy (Unknown, Verified 12/30/23 14:13) TACHYCARDIA erythromycin base [ERYTHROMYCIN BASE] Allergy (Unknown, Verified 12/30/23 14:13) SWELLING NSAIDS (Non-Steroidal Anti-Inflamma [NSAIDS (NON-STEROIDAL ANTI-INFLAMMA] Allergy (Unknown, Verified 12/30/23 14:13) NOT TO TAKE penicillin V Allergy (Unknown, Verified 12/30/23 14:13) itching Penicillins [PENICILLINS] Allergy (Unknown, Verified 12/30/23 14:13) ITCHY ALL ANTIBIOTICS Allergy (Unknown, Uncoded 12/30/23 14:13) UNKNOWN All antibiotics Allergy (Unknown, Uncoded 12/30/23 14:13) caused Meniere's disease, very probable cause of temporal ar antihistamine Allergy (Unknown, Uncoded 12/30/23 14:13) contraindicated with tachycardia Erythromycin Allergy (Unknown, Uncoded 12/30/23 14:13) face swelling NSAIDs Allergy (Unknown, Uncoded 12/30/23 14:13) contraindicated with Meniere's disease Medication List - Last Reconciled 12/30/23 by GIA Jesus cranberry extract 425 mg PO DAILY d-mannose mg PO magnesium citrate 100 mg PO DAILY niacin 100 mg PO DAILY Tobacco use date assessed: 12/30/23 Fall risk assessment: No Falls in past year Last assessed Fall Risk: 12/30/23 Dental Screening Dental Screen Date: 12/30/23 HPI HPI Comments History of Present Illness Details 83-year-old female in today for a follow -up. Patient has past medical history for UTI, currently seeing a metal neutralizer. Patient will not utilize any antibiotics under any circumstances due to exacerbation of Meniere's disease. Patient does have history of peripheral vascular disease states she is getting some leg heaviness bilaterally. Would like to go back and see previous doctor at [facility] vascular, will refer. Patient has no lower extremity edema physical exam no numbness or tingling Patient has agreed to see Urology for frequent UTIs. [facility] Medical History Smoker Chronic back pain Coronary artery disease Peripheral artery disease Lung nodules SVT (supraventricular tachycardia) Allergic rhinitis Meniere disease Temporal arteritis Surgical History History of dental surgery History of colonoscopy Social History Housing: Apartment Patient Tobacco Use Status: Current everyday Tobacco user Tobacco use type: Cigarette Cigarettes Per Day: 12 e-Cigarette/Vaping Use: Never Used Second Hand Smoke Exposure: No service: No Current occupational status: retired Cognitive needs: No Hearing needs: No Vision needs: Yes Questionnaire Thrive Questionnaire Date Thrive assessed: 10/10/23 EDEL-7 AMB Questionnaire EDEL-7 Date EDEL - 7 assessed: 10/10/23 Source: Developed by Drs. Valeriy Hernandez, Amina Plasencia, Sharan Pelletier and colleagues, with an educational ana from [email or web address]. Review of Systems Const All systems reviewed & are unremarkable except as noted in HPI and below Denies chills and Denies fever(s) Card Denies chest pain and Denies dyspnea Resp Denies cough, Denies dyspnea and Denies wheezing GI Denies diarrhea, Denies nausea and Denies vomiting Aller/Immun Denies wheezing Physical exam (Primary Care) Vital Signs: Last Vital Signs Pulse 109 H 12/30/23 13:44 Pulse Ox 92 12/30/23 13:44 Oxygen Delivery Method Room Air 12/30/23 13:44 BMI result Body Mass Index 24.7 Tobacco/Smoking Status: Tobacco use Status Tobacco use date assessed 12/30/23 12/30/23 13:53 Patient Tobacco Use Status Current everyday Tobacco 12/30/23 13:53 Tobacco use type Cigarette 12/30/23 13:53 e-Cigarette/Vaping Use Never Used 12/30/23 13:53 Thrive Assessment: Date of Thrive Assessment Date Thrive assessed 10/10/23 12/30/23 13:53 Results Reviewed Results Reviewed: Sodium 143 135-145 mmol/L Potassium 4.3 3.3-5.1 mmol/L CL 107 96-108 mmol/L CO2 26 22-29 mmol/L Gap 14 12-20 BUN 15 9-16 mg/dL Creat 0.78 0.5-1.4 mg/dL EGFR > 60 NOTE: For -[place] individuals, multiply the result by 1.210. Chronic Kidney Disease: Estimated GFR < 60 mL/min/1.73m2 Severe Kidney Disease: Estimated GFR < 15 mL/min/1.73m2 Glucose, Random 101 60-115 mg/dL CA 9.6 8.4-10.2 mg/dL Total Bili 0.5 0.0-1.0 mg/dL AST (GOT) 17 5-31 U/L ALT (GPT) 12 0-31 U/L Protein, Total 7.1 6.5-8.0 g/dL Alb 4.1 3.5-5.0 g/dL Triglyceride 56 <150 mg/dL Desirable Triglyceride: less than 150 mg/dL Borderline High Triglyceride 150-199 mg/dL High Triglyceride: 200-499 mg/dL Very High Triglyceride: greater than or equal to 5OO mg/dL Cholesterol 151 <200 mg/dL Desirable Cholesterol: less than 200 mg/dL Borderline High Cholesterol: 200-239 mg/dL High Cholesterol: greater than 239 mg/dL LDL Calculated 76 <100 mg/dL Desirable LDL: less than 100 mg/dL Near Optimal/Above Optimal LDL: 110-129 mg/dL Borderline High LDL: 130-159 mg/dL High LDL: 160-189 mg/dL Very High LDL: greater than or equal to 190 mg/dL HDL 64 >40 mg/dL Desirable HDL: greater than 40 mg/dL Note: This HDL assay may give artificially low results in patients with liver disease. Alk Phos 140 H 39-117 U/L TSH 0.89 0.32-4.0 uIU/mL Assessment and Plan Assessment & Plan (1) Chronic UTI: Comment: Patient has issues of chronic UTI and urinary incontinence. Will draw UA. Patient will get referral to urogynecologist. Patient refuses antibiotics Code(s): N39.0 - Urinary tract infection, site not specified (2) Peripheral artery disease: Comment: History of PAD. Pt would like to return to previous vascular provider. Code(s): I73.9 - Peripheral vascular disease, unspecified Plan: Will draw labs Plan Follow up in 6 months. Orders: Orders Hemoglobin A1c Today Z13.1 - Encounter for screening for diabetes mellitus Comprehensive Met. Panel Today Z91.89 - Other specified personal risk factors, not elsewhere classified UA CC w/rflx Micro + Cult Today Z13.89 - Encounter for screening for other disorder Complete Blood Count Auto Diff Today Z13.0 - Encounter for screening for diseases of the blood and blood-forming organs and certain disorders involving the immune mechanism Magnesium Today E61.2 - Magnesium deficiency Referrals Vascular Surgery Referral I73.9 - Peripheral vascular disease, unspecified Coding Level of Care Code Est Pt Level 3 (41270) Diagnoses Chronic UTI N39.0 Peripheral artery disease I73.9 Time Spent (min) 26
== END 2023-12-30 16:05 | disposition home or self-care (01) ==
PROVIDERS: PCP Nurse Practitioner Primary Care; Visit Provider Nurse Practitioner Primary Care
DX: N39.0 Urinary tract infection, site not specified (principal); I73.9 Peripheral vascular disease, unspecified
CPT/HCPCS: 99213

== ENCOUNTER 2023-12-30 14:29 | Outpatient (REF) | payer MEDICARE, OTHER, SELFPAY ==
[2023-12-30 15:57] LABS: MANUAL DIFF FLAG NO
[2023-12-30 16:15] LABS: Basophils Absolute Auto 0.1 X10*3/uL (0.0-0.2); Basophils Percent Auto 0.7 % (0-2); Eosinophils Absolute Auto 0.1 X10*3/uL (0.0-0.4); Eosinophils Percent Auto 1.8 % (0-4); Hematocrit 46.2 % (37.0-47.0); Hemoglobin 15.1 g/dl (12.0-16.0); Imm Gran Abs Auto 0.02 X10*3/uL (0.00-0.03); Imm Gran Pct Auto 0.3 % (0.0-0.4); Lymphocytes Absolute Auto 1.5 X10*3/uL (1.2-4.9); Mean Corpuscular HGB Conc 32.7 g/dl (31.0-35.0); Mean Corpuscular Hemoglobin 30.1 pg (27.0-33.0); Mean Corpuscular Volume 92.2 fL (80.0-98.0); Mean Platelet Volume 10.1 fL (9.4-12.3); Monocytes Absolute Auto 0.6 X10*3/uL (0.1-1.2); Monocytes Percent Auto 7.9 % (2-11); Neutrophils Absolute Auto 5.1 x10*3/uL (2.0-8.3); Neutrophils Percent Auto 69.3 % (45-73); Platelet Count 314 X10*3/uL (160-400); Red Blood Count 5.01 X10*6/uL (4.20-5.50); Red Cell Distribution Width 13.6 % (11.0-16.0); White Blood Count 7.3 X10*3/uL (4.8-10.8)
[2023-12-30 16:28] LABS: Alanine Aminotransferase 12 U/L (0-31); Albumin Level 4.3 g/dL (3.5-5.0); Alkaline Phosphatase 136 U/L (39-117); Anion Gap 12 (12-20); Aspartate Amino Transferase 16 U/L (5-31); Bilirubin Total 0.5 mg/dL (0.0-1.0); Blood Urea Nitrogen 31 mg/dL (9-16); Calcium 10.1 mg/dL (8.4-10.2); Carbon Dioxide 29 mmol/L (22-29); Chloride 104 mmol/L (96-108); Estimated Glomerular Filt Rate > 60; Glucose Random 96 mg/dL (60-115); Magnesium 2.3 mg/dL (1.6-2.6); Potassium 4.7 mmol/L (3.3-5.1); Sodium 140 mmol/L (135-145); Total Protein 7.4 g/dL (6.5-8.0)
[2023-12-30 16:42] LABS: Estimated Average Glucose 111 mg/dL; Hemoglobin A1c % 5.5 % (<6.0)
== END 2023-12-30 14:30 | disposition home or self-care (01) ==
LOC: HO.HMGCLDS 14:29
PROVIDERS: PCP Nurse Practitioner Primary Care; Visit Provider Nurse Practitioner Primary Care
DX: Z13.1 Encounter for screening for diabetes mellitus (principal); Z13.0 Encounter for screening for diseases of the blood and blood-forming organs and certain disorders involving the immune mechanism; E61.2 Magnesium deficiency; Z91.89 Other specified personal risk factors, not elsewhere classified
CPT/HCPCS: 36415; 80053; 83036; 83735; 85025

== ENCOUNTER 2024-02-08 13:46 | Emergency (ER) | payer MEDICARE, OTHER, SELFPAY ==
[2024-02-08 14:09] VITALS: BP 184/70; PULSE 103; RESP 18; TEMP 36.8; O2SAT 94; BMI 26.3
--- NOTE | 2024-02-08 14:11 | ED_ITS ---
HPI - General Adult General Chief complaint: Wound/Laceration Stated complaint: lt ankle infection Time Seen by Provider: 02/08/24 14:31 Source: patient Mode of arrival: ambulatory Limitations: no limitations History of Present Illness HPI narrative: Patient is an 83-year-old female who presents to the emergency department for evaluation. The left medial ankle she sustained a bug bite 01/27/24 the areas very itchy for approximately 3 days. Ultimately in the skin opened and she has had progression of redness and localized swelling to the area. She expresses significant concern and reluctance about taking oral antibiotics as this causes exacerbation of her Meniere's disease. She denies any fevers, chills, pain with movement of the ankle Related Data Home Medications ?Medication ?Instructions ?Recorded ?Confirmed cranberry extract 425 mg capsule 425 mg PO DAILY 10/10/23 12/30/23 d-mannose 500 mg capsule mg PO 10/10/23 12/30/23 magnesium citrate 100 mg capsule 100 mg PO DAILY 12/30/23 12/30/23 niacin 100 mg tablet 100 mg PO DAILY 12/30/23 12/30/23 Previous Rx's ?Medication ?Instructions ?Recorded cephalexin 500 mg capsule 500 mg PO TID 7 days #21 caps 02/08/24 Allergies Allergy/AdvReac Type Severity Reaction Status Date / Time camphor [CAMPHOR] Allergy Severe SWELLING, Verified 02/08/24 14:15 swelling glands, extreme dizziness, swelling glands, extreme dizziness Antihistamines - Alkylamine Allergy Unknown TACHYCARDIA Verified 02/08/24 14:15 [ANTIHISTAMINES - ALKYLAMINE] erythromycin base Allergy Unknown SWELLING Verified 02/08/24 14:15 [ERYTHROMYCIN BASE] NSAIDS (Non-Steroidal Allergy Unknown NOT TO TAKE Verified 02/08/24 14:15 Anti-Inflamma [NSAIDS (NON-STEROIDAL ANTI-INFLAMMA] penicillin V Allergy Unknown itching Verified 02/08/24 14:15 Penicillins [PENICILLINS] Allergy Unknown ITCHY Verified 02/08/24 14:15 ALL ANTIBIOTICS Allergy Unknown UNKNOWN Uncoded 12/30/23 14:13 All antibiotics Allergy Unknown caused Uncoded 12/30/23 14:13 Meniere's disease, very probable cause of temporal ar antihistamine Allergy Unknown contraindicated Uncoded 12/30/23 14:13 with tachycardia Erythromycin Allergy Unknown face Uncoded 12/30/23 14:13 swelling NSAIDs Allergy Unknown contraindicated Uncoded 12/30/23 14:13 with Meniere's disease Review of Systems Review of Systems: Yes all other systems are reviewed and are negative [facility] Past Medical History Medical History Smoker Chronic back pain Coronary artery disease Peripheral artery disease Lung nodules SVT (supraventricular tachycardia) Allergic rhinitis Meniere disease Temporal arteritis Surgical History History of dental surgery History of colonoscopy Social History Social History Housing: Apartment Patient Tobacco Use Status: Current everyday Tobacco user Tobacco use type: Cigarette Cigarettes Per Day: 12 e-Cigarette/Vaping Use: Never Used Second Hand Smoke Exposure: No Advance Directives: No Advance Directives Information Provided: Yes Do you have a plan to hurt others: No Plan service: No Current occupational status: retired Cognitive needs: No Hearing needs: No Vision needs: Yes Physical Exam ED Vital Signs: Vital Signs - 24 hr 02/08/24 14:09 02/08/24 14:40 Temperature 98.2 F 98.2 F Pulse Rate 103 H 103 H Respiratory Rate 18 18 Blood Pressure 184/70 H 184/70 H Pulse Oximetry 94 94 Oxygen Delivery Method Room Air Room Air BMI result Body Mass Index 26.3 Appearance: Alert.?Oriented to person, place and time. No acute distress.?Normal affect. Neck: Normal inspection.? Neck supple.?? CVS: Heart sounds normal. Normal heart rate and rhythm.? Pulses normal.?? Respiratory: No respiratory distress.? Lung sounds clear to auscultation bilaterally?? Skin: Skin warm and dry.? Normal skin color.? Extremities: No lower extremity edema.? Scapular lesion to left medial malleolus surrounding circumferential erythema, no central fluctuance, indurated, measuring approximately 5 cm. Full range of motion to the ankle. 2+ DP/PT pulse Neuro: Moves all extremities spontaneously. Sensation intact bilaterally. Ambulates with normal steady gait. Medical Decision Making Medical Decision Making MDM Narrative: Patient is an 83-year-old female who presents to the emergency department for evaluation of a bug bite to the left ankle as per HPI. Examination is con sistent with cellulitis overlying the left medial malleolus, there is a scabbed abrasion in the center, no central fluctuance to suggest an underlying abscess. She has full range of motion to the ankle, do not suspect this is an acute septic joint. She is afebrile without tachycardia. We had an at length discussion about treatment, she has trialed conservative treatment such as elevation, cold compresses. I discussed with patient my recommendation for oral antibiotics to treat the cellulitis, she is very hesitant as this causes a severe exacerbation of her Meniere's disease. She asked whether topical antibiotics can be applied, I did advise her that she may apply them at her discretion but based on her presentation I recommend oral antibiotics. The decision was ultimately left with her and she opted to take a course of oral antibiotics. The area was marked with a skin marker, and we discussed strict return precautions. All questions answered. Stable for discharge Differential Diagnosis Differential Diagnoses: The differential diagnosis associated with the presentation includes (See narrative above) External Record Review External record reviewed: Outpatient record Prescription Management I considered prescription management with: Antibiotic (See narrative above) Discharge Plan Discharge Clinical Impression: Cellulitis of right lower extremity Patient Disposition: Home, Self-Care Instructions: Cellulitis (ED) Additional Instructions: Complete the entire course of antibiotics as prescribed apply warm moist compresses to the area 3-4 times daily for 10-15 minutes. Monitor the area of redness, if it continues to spread after the next days this should be re-evaluated. If you develop any pus-like drainage, increasing swelling, pain, fevers, chills then be re-evaluated. Prescriptions: New cephalexin 500 mg capsule 500 mg PO TID 7 Days Qty: 21 0RF No Action cranberry extract 425 mg capsule 425 mg PO DAILY Rx Instructions: administer with a meal d-mannose 500 mg capsule PO magnesium citrate 100 mg capsule 100 mg PO DAILY niacin 100 mg tablet 100 mg PO DAILY Referrals: Physician,Unknown J [Physician] - Interventions: ED Discharge Assessment Last Done: 02/08/24 14:40 Discharge Date/Time: 02/08/24 14:41 Print Language: Estonian
[2024-02-08 14:40] VITALS: BP 184/70; PULSE 103; RESP 18; TEMP 36.8; O2SAT 94
== END 2024-02-08 14:41 | disposition home or self-care (01) ==
PROVIDERS: Emergency Provider Emergency Medicine Emergency Medical Services; PCP Nurse Practitioner Primary Care
DX: L03.116 Cellulitis of left lower limb (principal); M25.572 Pain in left ankle and joints of left foot; F17.210 Nicotine dependence, cigarettes, uncomplicated
CPT/HCPCS: 99282; 99283

== ENCOUNTER 2024-03-05 12:45 | Outpatient (REF) | payer MEDICARE, OTHER, SELFPAY ==
[2024-03-06 10:00] LABS: Adenovirus F 40/41 Not Detected (Not Detect.); Astrovirus Not Detected (Not Detect.); Campylobacter Not Detected (Not Detect.); Cryptosporidium Not Detected (Not Detect.); Cyclospora cayetanensis Not Detected (Not Detect.); E. coli EAEC Not Detected (Not Detect.); E. coli EPEC Not Detected (Not Detect.); E. coli ETEC Not Detected (Not Detect.); E. coli STEC Not Detected (Not Detect.); Entamoeba histolytica Not Detected (Not Detect.); Giardia lamblia Not Detected (Not Detect.); Norovirus GI/GII Not Detected (Not Detect.); Plesiomonas shigelloides Not Detected (Not Detect.); Rotavirus A Not Detected (Not Detect.); Salmonella Not Detected (Not Detect.); Sapovirus Not Detected (Not Detect.); Shigella sp./EIEC Not Detected (Not Detect.); Vibrio Not Detected (Not Detect.); Vibrio Cholerae Not Detected (Not Detect.); Yersinia enterocolitica Not Detected (Not Detect.)
== END 2024-03-05 12:46 | disposition home or self-care (01) ==
LOC: HO.HMGCLNP 12:45
PROVIDERS: PCP Nurse Practitioner Primary Care; Visit Provider Nurse Practitioner Primary Care
DX: K58.9 Irritable bowel syndrome, unspecified (principal); Z13.89 Encounter for screening for other disorder
CPT/HCPCS: 81003; 87507

== ENCOUNTER 2024-03-05 13:00 | Outpatient (REF) | payer MEDICARE, OTHER, SELFPAY ==
[2024-03-05 16:08] LABS: Appearance Urine Clear; Color Urine Dark Yellow; Glucose Urine UA Negative (Negative); Leukocyte Esterase Urine Negative (Negative); Nitrite Urine Negative (Negative); PH 5.5 (5.0-9.0); Urine Blood Negative (Negative); Urine Ketones Negative (Negative); Urine Protein Negative (Neg-Trace)
== END 2024-03-05 13:01 | disposition home or self-care (01) ==
LOC: HO.HMGCLNP 13:00
PROVIDERS: PCP Nurse Practitioner Primary Care; Visit Provider Nurse Practitioner Primary Care
DX: Z13.89 Encounter for screening for other disorder (principal)
CPT/HCPCS: 81003

== ENCOUNTER 2024-03-13 12:15 | Outpatient (AMB) | payer MEDICARE, OTHER, SELFPAY ==
--- NOTE | 2024-03-13 12:20 | MHC.PC.OV ---
Vital Signs 03/13/24 12:21 Height 5 ft 1 in Weight 141 lb BMI 26.6 Pulse 86 Pulse Source Pulse Oximeter Pulse Oximetry (%) 94 Oxygen Delivery Method Room Air Intake Visit Reasons: Transfer of care from [facility] Allergies camphor [CAMPHOR] Allergy (Severe, Verified 03/13/24 12:21) SWELLING, swelling glands, extreme dizziness, swelling glands, extreme dizziness Antihistamines - Alkylamine [ANTIHISTAMINES - ALKYLAMINE] Allergy (Unknown, Verified 03/13/24 12:21) TACHYCARDIA erythromycin base [ERYTHROMYCIN BASE] Allergy (Unknown, Verified 03/13/24 12:21) SWELLING NSAIDS (Non-Steroidal Anti-Inflamma [NSAIDS (NON-STEROIDAL ANTI-INFLAMMA] Allergy (Unknown, Verified 03/13/24 12:21) NOT TO TAKE penicillin V Allergy (Unknown, Verified 03/13/24 12:21) itching Penicillins [PENICILLINS] Allergy (Unknown, Verified 03/13/24 12:21) ITCHY ALL ANTIBIOTICS Allergy (Unknown, Uncoded 12/30/23 14:13) UNKNOWN All antibiotics Allergy (Unknown, Uncoded 12/30/23 14:13) caused Meniere's disease, very probable cause of temporal ar antihistamine Allergy (Unknown, Uncoded 12/30/23 14:13) contraindicated with tachycardia Erythromycin Allergy (Unknown, Uncoded 12/30/23 14:13) face swelling NSAIDs Allergy (Unknown, Uncoded 12/30/23 14:13) contraindicated with Meniere's disease Medication List - Last Reconciled 03/13/24 by Toni Ordonez MD cranberry extract 425 mg PO DAILY d-mannose mg PO magnesium citrate 100 mg PO DAILY niacin 100 mg PO DAILY Tobacco use date assessed: 03/13/24 Fall risk assessment: No Falls in past year Last assessed Fall Risk: 03/13/24 Dental Screening Dental Screen Date: 03/13/24 Did you have a dental visit in the last 12 months?: No Did you have a dental problem in the last 6 months where you did not have access to dental care?: No Was dental information given to patient?: No HPI Transfer of care from [facility] HPI Details Patient is 83-year-old female came in today for establish care visit Last when patient got bit by a book left lower ankle inner aspect She went to emergency room and was given doxycycline, infection has healed Patient says that she is allergic to multiple antibiotics but she was able to tolerate doxycycline for 7 days Last time she was here to see a different provider her blood pressure was very high above 180 systolic Patient says that it is because the blood pressure cuff pinches her and causes pain She declined to do blood pressure today Patient is aware of consequences of untreated hypertension She is seeing couple of nitro baths for different health issues Patient has a history of recurrent UTI and she is seeing Dr. Sarkar urologist Her other medical problems are giant cell arteritis diagnosed September of 2009 until November of 2014 resolved with the use of prednisone Peripheral artery disease: Diagnosed in 2015 In 2011 patient past peripheral artery disease test Meniere's disease with severe vertigo: Caused by an antibiotic to treat pneumonia in 1985. As per patient. Spondylolisthesis Tachycardia: Caused from stress and relieved with magnesium supplement Incontinence: Since menopause 35 years ago currently seeing a special education coordinator and will be learning pelvic floor exercises. Allergies: Currently seen [facility] for that Sciatica right-sided started in 2019. Patient would like to go to chiropractor for that and massage therapist she will look into it She lives on the 3rd floor and bringing groceries up flares up sciatica Osteopenia: Weight-bearing exercises Other providers patient is seeing are [facility] - Elizabeth Schultz [facility] special education coordinator-4 Urology pelvic floor exercises [facility]-Dr. Sarkar for recurrent UTIs Vascular specialist that patient do not remember the name of Medications she can not take she brought list NSAIDs as they are contraindicated in Meniere's disease Antihistamines due to tachycardia Erythromycin causes facial swelling Penicillin causes severe itching Came for caused facial swelling Pfizer COVID vaccine caused severe vertigo Was able to tolerate doxycycline I have ordered x-ray for her sciatica evaluation Patient does not want to see a back specialist because she does not want any medication or cortisone injection 45 minute spent with this patient Most of the time spent [id number] with the patient discussing her medical issues [facility] Medical History Smoker Chronic back pain Coronary artery disease Peripheral artery disease Lung nodules SVT (supraventricular tachycardia) Allergic rhinitis Meniere disease Temporal arteritis Surgical History History of dental surgery History of colonoscopy Social History Housing: Apartment Patient Tobacco Use Status: Current everyday Tobacco user Tobacco use type: Cigarette Cigarettes Per Day: 12 e-Cigarette/Vaping Use: Never Used Second Hand Smoke Exposure: No service: No Current occupational status: retired Cognitive needs: No Hearing needs: No Vision needs: Yes Questionnaire PHQ-9 Over the last 2 weeks, how often have you been bothered by any of the following problems? 1. Little interest or pleasure in doing things: not at all 2. Feeling down, depressed, or hopeless: not at all 3. Trouble falling or staying asleep, or sleeping too much: more than half the days 4. Feeling tired or having little energy: not at all 5. Poor appetite or overeating: not at all 6. Feeling bad about yourself - or that you are a failure or have let yourself or your family down: not at all 7. Trouble concentrating on things, such as reading the newspaper or watching television: not at all 8. Moving or speaking so slowly that other people could have noticed. Or the opposite - being so fidgety or restless that you have been moving around a lot more than usual: not at all 9. Thoughts that you would be better off or of hurting yourself in some way: not at all Total score: 2 Depression Screening Interpretation: Negative Depression Screening Done: Yes 19381 - PHQ-9 Billing: Yes Source: Developed by Drs. Valeriy Hernandez, Amina Plasencia, Sharan Pelletier and colleagues, with an educational ana from [employer]. Thrive Questionnaire Date Thrive assessed: 03/13/24 I am a: Patient What is your living situation today?: I have a steady place to live Within the past 12 months, did the food you bought not last and you didn't have the money to get more?: I choose not to answer this question Within the past 12 months, did you worry whether your food would run out before you got money to buy more?: Never true Do you have trouble paying for medicines?: No Do you have trouble getting transportation to medical appointments?: No Do you have trouble paying your heating and electricity bill?: No Do you have trouble taking care of your child, family member or friend?: No Do you have trouble with day-to-day activities such as bathing, preparing meals, shopping, managing finances, etc.?: No Are you currently unemployed and looking for a job?: No Are you interested in more education?: No Please select the resources that you would like help with: None Currently or been in a relationship where the following occur: No concerns reported THRIVE Score: 0 AUDIT C Alcohol Use Questionnaire (AUDIT-C) 1. How often do you have a drink containing alcohol?: Never 3. How often do you have six or more drinks on one occasion?: Never Total Score: 0 Score Reviewed/Action Taken: Yes EDEL-7 AMB Questionnaire EDEL-7 Date EDEL - 7 assessed: 03/13/24 Feeling nervous, anxious, or on edge: 0 = Not at all Not being able to stop or control worryin = Not at all Worrying too much about different things: 0 = Not at all Trouble relaxin = Not at all Being so restless that it is hard to sit still: 0 = Not at all Becoming easily annoyed or irritable: 0 = Not at all Feeling afraid as if something awful might happen: 0 = Not at all Total EDEL-7 score (0-4 normal; 5-9 mild; 10-14 moderate; 15-21 severe): 0 Source: Developed by Drs. Valeriy Hernandez, Amina Plasencia, Sharan Pelletier and colleagues, with an educational ana from [employer]. EDEL-7 Assessment Billing EDEL-7 Assessment Tool: EDEL-7 Assessment 81918 Review of Systems Const Denies chills and Denies fever(s) ENT Denies epistaxis and Denies nasal discharge Card Denies chest pain Resp Denies chest congestion, Denies cough and Denies hemoptysis GI Denies diarrhea and Denies nausea Skin/Breast Denies rash Neuro Reports no additional complaints Psych Reports no additional complaints Endo Reports no additional complaints Physical exam (Primary Care) Vital Signs: Last Vital Signs Pulse 86 03/13/24 12:21 Pulse Ox 94 03/13/24 12:21 Oxygen Delivery Method Room Air 03/13/24 12:21 BMI result Body Mass Index 26.6 Tobacco/Smoking Status: Tobacco use Status Tobacco use date assessed 03/13/24 03/13/24 12:24 Patient Tobacco Use Status Current everyday Tobacco 03/13/24 12:21 Tobacco use type Cigarette 03/13/24 12:21 e-Cigarette/Vaping Use Never Used 03/13/24 12:21 PHQ-9: PHQ-9 Score PHQ-9: Total score 2 03/13/24 13:03 Depression Screening Interpretation: Negative Thrive Assessment: Date of Thrive Assessment Date Thrive assessed 03/13/24 03/13/24 12:24 Currently or been in a relationship where the following occur: No concerns reported Const General: cooperative, comfortable and no acute distress Orientation/consciousness: patient oriented x3 HENMT Head: Yes normocephalic Eyes General: appearance normal, both eyes and all related structures Neck Neck: Yes supple Resp Effort & Inspection: normal respiratory effort, no cough and no stridor Cardio Rhythm: regular rhythm Heart sounds: S1 normal heart sound present and S2 normal heart sound present Skin General skin exam: turgor normal Neuro General: patient oriented x3, tone normal and moves all extremities Extrem Right lower extremity: no edema Left lower extremity: no edema Assessment and Plan Assessment & Plan (1) Establishing care with new doctor, encounter for: Code(s): Z76.89 - Persons encountering health services in other specified circumstances (2) Right lumbar radiculitis: Code(s): M54.16 - Radiculopathy, lumbar region (3) Meniere disease: Code(s): H81.09 - Meniere's disease, unspecified ear Qualifiers: Laterality: bilateral Qualified Code(s): H81.03 - Meniere's disease, bilateral (4) Recurrent UTI: Code(s): N39.0 - Urinary tract infection, site not specified (5) Tachycardia: Code(s): R00.0 - Tachycardia, unspecified (6) Urine incontinence: Code(s): R32 - Unspecified urinary incontinence Qualifiers: Urinary Incontinence type: unspecified incontinence Qualified Code(s): R32 - Unspecified urinary incontinence (7) Environmental allergies: Code(s): Z91.09 - Other allergy status, other than to drugs and biological substances (8) Osteopenia: Code(s): M85.80 - Other specified disorders of bone density and structure, unspecified site Qualifiers: Osteopenia location: unspecified Qualified Code(s): M85.80 - Other specified disorders of bone density and structure, unspecified site (9) History of giant cell arteritis: Code(s): Z87.39 - Personal history of other diseases of the musculoskeletal system and connective tissue (10) Mammogram declined: Code(s): Z53.20 - Procedure and treatment not carried out because of patient's decision for unspecified reasons Plan Patient is 83-year-old female came in today for establish care visit Last when patient got bit by a book left lower ankle inner aspect She went to emergency room and was given doxycycline, infection has healed Patient says that she is allergic to multiple antibiotics but she was able to tolerate doxycycline for 7 days Last time she was here to see a different provider her blood pressure was very high above 180 systolic Patient says that it is because the blood pressure cuff pinches her and causes pain She declined to do blood pressure today Patient is aware of consequences of untreated hypertension She is seeing couple of nitro baths for different health issues Patient has a history of recurrent UTI and she is seeing Dr. Sarkar urologist Her other medical problems are giant cell arteritis diagnosed September of 2009 until November of 2014 resolved with the use of prednisone Peripheral artery disease: Diagnosed in 2015 In 2011 patient past peripheral artery disease test Meniere's disease with severe vertigo: Caused by an antibiotic to treat pneumonia in 1985. As per patient. Spondylolisthesis Tachycardia: Caused from stress and relieved with magnesium supplement Incontinence: Since menopause 35 years ago currently seeing a special education coordinator and will be learning pelvic floor exercises. Allergies: Currently seen [facility] for that Sciatica right-sided started in 2019. Patient would like to go to chiropractor for that and massage therapist she will look into it She lives on the 3rd floor and bringing groceries up flares up sciatica Osteopenia: Weight-bearing exercises Other providers patient is seeing are [facility] - Elizabeth Schultz [employer] special education coordinator-4 Urology pelvic floor exercises [facility]-Dr. Sarkar for recurrent UTIs Vascular specialist that patient do not remember the name of Medications she can not take she brought list NSAIDs as they are contraindicated in Meniere's disease Antihistamines due to tachycardia Erythromycin causes facial swelling Penicillin causes severe itching Came for caused facial swelling Pfizer COVID vaccine caused severe vertigo Was able to tolerate doxycycline I have ordered x-ray for her sciatica evaluation Patient does not want to see a back specialist because she does not want any medication or cortisone injection 45 minute spent with this patient Most of the time spent [id number] with the patient discussing her medical issues Orders: Orders XR lumbar spine 2-3V Today M54.16 - Radiculopathy, lumbar region Coding Level of Care Code New Pt Level 5 ([id number]) Diagnoses Establishing care with new doctor, encounter for Z76.89 Right lumbar radiculitis M54.16 Meniere's disease of both ears H81.03 Laterality: bilateral Recurrent UTI N39.0 Tachycardia R00.0 Urinary incontinence, unspecified type R32 Urinary Incontinence type: unspecified incontinence Environmental allergies Z91.09 Osteopenia, unspecified location M85.80 Osteopenia location: unspecified History of giant cell arteritis Z87.39 Mammogram declined Z53.20 Additional Codes EDEL-7 Assessment Billing - EDEL-7 Assessment Tool: EDEL-7 Assessment [id number] ([id number])
[2024-03-13 12:21] VITALS: PULSE 86; O2SAT 94; BMI 26.6
== END 2024-03-13 12:55 | disposition home or self-care (01) ==
PROVIDERS: PCP Nurse Practitioner Primary Care; Visit Provider Internal Medicine
DX: M54.16 Radiculopathy, lumbar region (principal); Z76.89 Persons encountering health services in other specified circumstances; H81.03 Meniere's disease, bilateral; N39.0 Urinary tract infection, site not specified; R00.0 Tachycardia, unspecified; R32 Unspecified urinary incontinence; Z91.09 Other allergy status, other than to drugs and biological substances; M85.80 Other specified disorders of bone density and structure, unspecified site; Z87.39 Personal history of other diseases of the musculoskeletal system and connective tissue; Z53.20 Procedure and treatment not carried out because of patient's decision for unspecified reasons
CPT/HCPCS: 99215

== ENCOUNTER 2024-05-19 12:07 | Outpatient (AMB) | payer MEDICARE, OTHER, SELFPAY ==
[2024-05-19 12:08] VITALS: PULSE 102; O2SAT 94; BMI 26.7
--- NOTE | 2024-05-19 12:08 | MHC.PC.OV ---
Vital Signs 05/19/24 12:08 Height 5 ft 1 in Weight 141 lb 2 oz BMI 26.7 BP not taken reason Patient Refused Pulse 102 H Pulse Source Pulse Oximeter Pulse Oximetry (%) 94 Oxygen Delivery Method Room Air Intake Visit Reasons: 2 Month F/U Allergies camphor [CAMPHOR] Allergy (Severe, Verified 03/13/24 12:21) SWELLING, swelling glands, extreme dizziness, swelling glands, extreme dizziness Antihistamines - Alkylamine [ANTIHISTAMINES - ALKYLAMINE] Allergy (Unknown, Verified 03/13/24 12:21) TACHYCARDIA erythromycin base [ERYTHROMYCIN BASE] Allergy (Unknown, Verified 03/13/24 12:21) SWELLING NSAIDS (Non-Steroidal Anti-Inflamma [NSAIDS (NON-STEROIDAL ANTI-INFLAMMA] Allergy (Unknown, Verified 03/13/24 12:21) NOT TO TAKE penicillin V Allergy (Unknown, Verified 03/13/24 12:21) itching Penicillins [PENICILLINS] Allergy (Unknown, Verified 03/13/24 12:21) ITCHY ALL ANTIBIOTICS Allergy (Unknown, Uncoded 12/30/23 14:13) UNKNOWN All antibiotics Allergy (Unknown, Uncoded 12/30/23 14:13) caused Meniere's disease, very probable cause of temporal ar antihistamine Allergy (Unknown, Uncoded 12/30/23 14:13) contraindicated with tachycardia Erythromycin Allergy (Unknown, Uncoded 12/30/23 14:13) face swelling NSAIDs Allergy (Unknown, Uncoded 12/30/23 14:13) contraindicated with Meniere's disease Medication List - Last Reconciled 05/19/24 by Toni Ordonez MD cranberry extract 425 mg PO DAILY d-mannose mg PO magnesium citrate 100 mg PO DAILY niacin 100 mg PO DAILY Tobacco use date assessed: 03/13/24 Dental Screening Dental Screen Date: 03/13/24 HPI 2 Month F/U HPI Details Patient is 83-year-old female came in today to request a referral to [facility] She is currently seeing [facility]rology group of [facility] She wanted lost consultation note printed which I did for her Patient have a history of recurrent UTIs, urinary incontinence, and calcium oxalate crystals present in the urine She did not wanted her blood pressure checked as usual. [facility] Medical History Smoker Chronic back pain Coronary artery disease Peripheral artery disease Lung nodules SVT (supraventricular tachycardia) Allergic rhinitis Meniere disease Temporal arteritis Surgical History History of dental surgery History of colonoscopy Social History Housing: Apartment Patient Tobacco Use Status: Current everyday Tobacco user Tobacco use type: Cigarette Cigarettes Per Day: 12 e-Cigarette/Vaping Use: Never Used Second Hand Smoke Exposure: No service: No Current occupational status: retired Cognitive needs: No Hearing needs: No Vision needs: Yes Questionnaire PHQ-9 Over the last 2 weeks, how often have you been bothered by any of the following problems? 1. Little interest or pleasure in doing things: not at all Source: Developed by Drs. Valeriy Hernandez, Amina Plasencia, Sharan Pelletier and colleagues, with an educational ana from [employer]. Thrive Questionnaire Date Thrive assessed: 03/13/24 I am a: Patient What is your living situation today?: I have a steady place to live Within the past 12 months, did the food you bought not last and you didn't have the money to get more?: I choose not to answer this question Within the past 12 months, did you worry whether your food would run out before you got money to buy more?: Never true Do you have trouble paying for medicines?: No Do you have trouble getting transportation to medical appointments?: No Do you have trouble paying your heating and electricity bill?: No Do you have trouble taking care of your child, family member or friend?: No Do you have trouble with day-to-day activities such as bathing, preparing meals, shopping, managing finances, etc.?: No Are you currently unemployed and looking for a job?: No Are you interested in more education?: No Please select the resources that you would like help with: None Currently or been in a relationship where the following occur: No concerns reported THRIVE Score: 0 EDEL-7 AMB Questionnaire EDEL-7 Date EDEL - 7 assessed: 03/13/24 Source: Developed by Drs. Valeriy Hernandez, Amina Plasencia, Sharan Pelletier and colleagues, with an educational ana from [employer]. Review of Systems Const Denies chills and Denies fever(s) ENT Denies epistaxis and Denies nasal discharge Card Denies chest pain Resp Denies chest congestion, Denies cough and Denies hemoptysis GI Denies diarrhea and Denies nausea Skin/Breast Denies rash Neuro Reports no additional complaints Psych Reports no additional complaints Endo Reports no additional complaints Physical exam (Primary Care) Vital Signs: Last Vital Signs Pulse 102 H 05/19/24 12:08 Pulse Ox 94 05/19/24 12:08 Oxygen Delivery Method Room Air 05/19/24 12:08 BMI result Body Mass Index 26.7 Tobacco/Smoking Status: Tobacco use Status Tobacco use date assessed 03/13/24 05/19/24 12:09 Patient Tobacco Use Status Current everyday Tobacco 05/19/24 12:09 Tobacco use type Cigarette 05/19/24 12:09 e-Cigarette/Vaping Use Never Used 05/19/24 12:09 Thrive Assessment: Date of Thrive Assessment Date Thrive assessed 03/13/24 05/19/24 12:09 Currently or been in a relationship where the following occur: No concerns reported Const General: cooperative, comfortable and no acute distress Orientation/consciousness: patient oriented x3 HENMT Head: Yes normocephalic Eyes General: appearance normal, both eyes and all related structures Neck Neck: Yes supple Resp Effort & Inspection: normal respiratory effort, no cough and no stridor Cardio Rhythm: regular rhythm Heart sounds: S1 normal heart sound present and S2 normal heart sound present Skin General skin exam: turgor normal Neuro General: patient oriented x3, tone normal and moves all extremities Extrem Right lower extremity: no edema Left lower extremity: no edema Coding Level of Care Code Est Pt Level 3 (38875) Diagnoses Recurrent UTI N39.0 Urinary incontinence, unspecified type R32 Urinary Incontinence type: unspecified incontinence Calcium oxalate calculus E83.59 Assessment & Plan Assessment & Plan (1) Recurrent UTI: Code(s): N39.0 - Urinary tract infection, site not specified Category: Medical (2) Urine incontinence: Code(s): R32 - Unspecified urinary incontinence Category: Medical Qualifiers: Urinary Incontinence type: unspecified incontinence Qualified Code(s): R32 - Unspecified urinary incontinence (3) Calcium oxalate calculus: Code(s): E83.59 - Other disorders of calcium metabolism Category: Medical Plan Patient is 83-year-old female came in today to request a referral to [facility] She is currently seeing [facility]rology group of [facility] She wanted lost consultation note printed which I did for her Patient have a history of recurrent UTIs, urinary incontinence, and calcium oxalate crystals present in the urine She did not wanted her blood pressure checked as usual. Orders: Referrals Urology Referral E83.59 - Other disorders of calcium metabolism, N39.0 - Urinary tract infection, site not specified, R32 - Unspecified urinary incontinence
== END 2024-05-19 12:48 | disposition home or self-care (01) ==
PROVIDERS: PCP Nurse Practitioner Primary Care; Visit Provider Internal Medicine
DX: N39.0 Urinary tract infection, site not specified (principal); R32 Unspecified urinary incontinence; E83.59 Other disorders of calcium metabolism

== ENCOUNTER → 2024-05-19 12:07 | Outpatient (BNVA) | payer MEDICARE, OTHER, SELFPAY | PROVIDERS: PCP Nurse Practitioner Primary Care; Visit Provider Internal Medicine | DX: N39.0 Urinary tract infection, site not specified (principal); R32 Unspecified urinary incontinence; E83.59 Other disorders of calcium metabolism | CPT/HCPCS: 99212 ==

== ENCOUNTER 2024-09-25 15:08 | Outpatient (AMB) | payer MEDICARE, OTHER, SELFPAY ==
--- NOTE | 2024-09-25 15:16 | MHC.PC.OV ---
Vital Signs 09/25/24 15:17 Height 5 ft 1 in Weight 143 lb BMI 27.0 BMI Reason not done Patient refused/unable BP not taken reason Patient Refused Respiration 20 Pulse 113 H Pulse Source Pulse Oximeter Temp 97.9 F Temp Source Oral Pulse Oximetry (%) 94 Oxygen Delivery Method Room Air Intake Visit Reasons: 3 months f/up Allergies camphor [CAMPHOR] Allergy (Severe, Verified 09/25/24 15:17) SWELLING, swelling glands, extreme dizziness, swelling glands, extreme dizziness Antihistamines - Alkylamine [ANTIHISTAMINES - ALKYLAMINE] Allergy (Unknown, Verified 09/25/24 15:17) TACHYCARDIA erythromycin base [ERYTHROMYCIN BASE] Allergy (Unknown, Verified 09/25/24 15:17) SWELLING NSAIDS (Non-Steroidal Anti-Inflamma [NSAIDS (NON-STEROIDAL ANTI-INFLAMMA] Allergy (Unknown, Verified 09/25/24 15:17) NOT TO TAKE penicillin V Allergy (Unknown, Verified 09/25/24 15:17) itching Penicillins [PENICILLINS] Allergy (Unknown, Verified 09/25/24 15:17) ITCHY ALL ANTIBIOTICS Allergy (Unknown, Uncoded 12/30/23 14:13) UNKNOWN All antibiotics Allergy (Unknown, Uncoded 12/30/23 14:13) caused Meniere's disease, very probable cause of temporal ar antihistamine Allergy (Unknown, Uncoded 12/30/23 14:13) contraindicated with tachycardia Erythromycin Allergy (Unknown, Uncoded 12/30/23 14:13) face swelling NSAIDs Allergy (Unknown, Uncoded 12/30/23 14:13) contraindicated with Meniere's disease Medication List - Last Reconciled 09/25/24 by Toni Ordonez MD cranberry extract 425 mg PO DAILY d-mannose mg PO magnesium citrate 100 mg PO DAILY niacin 100 mg PO DAILY Tobacco use date assessed: 09/25/24 Fall risk assessment: No Falls in past year Last assessed Fall Risk: 09/25/24 Dental Screening Dental Screen Date: 09/25/24 Did you have a dental visit in the last 12 months?: No Did you have a dental problem in the last 6 months where you did not have access to dental care?: No Was dental information given to patient?: Patient declined HPI 3 months f/up HPI Details Patient is 83-year-old female came in today to talk about her bladder issue She has already seen urologist At 1 point she had calcium oxalate crystals which is worrisome for the patient She had a urinalysis done in February which was clear I printed the report and handed to her She would like to have repeat urinalysis, order placed She is requesting another order placed to be done in future if needed, which I also placed for her She does not want to have blood pressure checked as she is feeling upset But she has a blood pressure monitor at home and she will continue to monitor. She has no other complaints today [facility] Medical History Smoker Chronic back pain Coronary artery disease Peripheral artery disease Lung nodules SVT (supraventricular tachycardia) Allergic rhinitis Meniere disease Temporal arteritis Surgical History History of dental surgery History of colonoscopy Social History Housing: Apartment Patient Tobacco Use Status: Current everyday Tobacco user Tobacco use type: Cigarette Cigarettes Per Day: 12 e-Cigarette/Vaping Use: Never Used Second Hand Smoke Exposure: No service: No Current occupational status: retired Cognitive needs: No Hearing needs: No Vision needs: Yes Questionnaire Thrive Questionnaire Date Thrive assessed: 09/25/24 AUDIT C Alcohol Use Questionnaire (AUDIT-C) 1. How often do you have a drink containing alcohol?: Never 3. How often do you have six or more drinks on one occasion?: Never Total Score: 0 Score Reviewed/Action Taken: Yes EDEL-7 AMB Questionnaire EDEL-7 Date EDEL - 7 assessed: 03/13/24 Source: Developed by Drs. Valeriy Hernandez, Amina Plasencia, Sharan Pelletier and colleagues, with an educational ana from [facility]. Review of Systems Const All systems reviewed & are unremarkable except as noted in HPI and below Physical exam (Primary Care) Vital Signs: Last Vital Signs Temp 97.9 F 09/25/24 15:17 Pulse 113 H 09/25/24 15:17 Resp 20 09/25/24 15:17 Pulse Ox 94 09/25/24 15:17 Oxygen Delivery Method Room Air 09/25/24 15:17 BMI result Body Mass Index 27.0 Tobacco/Smoking Status: Tobacco use Status Tobacco use date assessed 09/25/24 09/25/24 15:19 Patient Tobacco Use Status Current everyday Tobacco 09/25/24 15:19 Tobacco use type Cigarette 09/25/24 15:19 e-Cigarette/Vaping Use Never Used 09/25/24 15:19 Thrive Assessment: Date of Thrive Assessment Date Thrive assessed 09/25/24 09/25/24 15:19 Const General: no acute distress Orientation/consciousness: patient oriented x3 Eyes General: appearance normal, both eyes and all related structures Resp Effort & Inspection: normal respiratory effort and able to speak in complete sentences Neuro General: patient oriented x3 Psych Mental Status: mental status grossly normal Coding Level of Care Code Est Pt Level 3 (76757) Diagnoses Recurrent UTI N39.0 Assessment & Plan Assessment & Plan (1) Recurrent UTI: Code(s): N39.0 - Urinary tract infection, site not specified Category: Medical Plan Patient is 83-year-old female came in today to talk about her bladder issue She has already seen urologist At 1 point she had calcium oxalate crystals which is worrisome for the patient She had a urinalysis done in February which was clear I printed the report and handed to her She would like to have repeat urinalysis, order placed She is requesting another order placed to be done in future if needed, which I also placed for her She does not want to have blood pressure checked as she is feeling upset But she has a blood pressure monitor at home and she will continue to monitor. She has no other complaints today Orders: Orders UA CC w/rflx Micro + Cult Today N39.0 - Urinary tract infection, site not specified UA CC w/rflx Micro + Cult 7 Days N39.0 - Urinary tract infection, site not specified
[2024-09-25 15:17] VITALS: PULSE 113; RESP 20; TEMP 36.6; O2SAT 94; BMI 27.0
--- OUTSIDE RECORDS SUMMARY | 2024-09-25 17:16 | XMS_ITS | Continuity of Care Document ---
Author Organization [facility] Address [address] [place] [address]- Care Team Providers Care System Planning Engineer Name Role Phone Justin ZHANG, Tuan Alvarez Primary Care Physician [id number] Date(s): 07/27/24 - 08/26/24 [facility] [address] [place] [address]- Encounter Type: Triage Allergies, Adverse Reactions, Alerts Substance Criticality Severity Reaction Reaction Severity Status ibuprofen Active erythromycin Active penicillin Active antihistamines Activ e Camphor Active Medications ammonium lactate 12% topical cream 1 Unknown, 0 Refill(s), 0 Refills, 06/15/24 2:44:00 PM EST, Partial fill upon patient request if the prescription is for a schedule II opioid drug. Start Date: 06/15/24 Status: Ordered Repeat number: 1 Aquasol E 0 Refill(s), 0 Refills, 02/25/24 2:13:00 PM EDT, Partial fill upon patient request if the prescription is for a schedule II opioid drug. Start Date: 02/25/24 Status: Ordered Repeat number: 1 ascorbic acid 1000 mg oral tablet 0 Refill(s), 0 Refills, 02/25/24 2:13:00 PM EDT, Partial fill upon patient request if the prescription is for a schedule II opioid drug. Start Date: 02/25/24 Status: Ordered Repeat number: 1 clindamycin 300 mg oral capsule 1 Unknown, 0 Refill(s), 0 Refills, 12/21/15 8:00:00 PM EDT, Partial fill upon patient request if theprescription is for a schedule II opioid drug. Start Date: 12/21/15 Status: Ordered Repeat number: 1 CoQ10 = 300 mg, By Mouth, Daily, 0 Refills, Maintenance, 04/01/15 12:58:06 PM EDT Start Date: 04/01/15 Status: Ordered Repeat number: 1 Daily Multi 1 tablet, By Mouth, Daily, 0 Refills, Maintenance, 04/01/15 12:57:10 PM EDT Start Date: 04/01/15 Status: Ordered Repeat number: 1 Folic Acid Daily, 0 Refills, Maintenance, 04/01/15 12:58:16 PM EDT Start Date: 04/01/15 Status: Ordered Repeat number: 1 predniSONE 1 mg oral tablet 0 Refill(s), 0 Refills, 02/25/24 2:13:00 PM EDT, Partial fill upon patient request if the prescription is for a schedule II opioid drug. Start Date: 02/25/24 Status: Ordered Repeat number: 1 predniSONE 10 mg oral tablet 0 Refill(s), 0 Refills, 02/25/24 2:13:00 PM EDT, Partial fill upon patient request if the prescription is for a schedule II opioid drug. Start Date: 02/25/24 Status: Ordered Repeat number: 1 predniSONE 2.5 mg oral tablet 0 Refill(s), 0 Refills, 02/25/24 2:13:00 PM EDT, Partial fill upon patient request if the prescription is for a schedule II opioid drug. Start Date: 02/25/24 Status: Ordered Repeat number: 1 predniSONE 20 mg oral tablet 0 Refill(s), 0 Refills, 06/15/24 2:44:00 PM EST, Partial fill upon patient request if the prescription is for a schedule II opioid drug. Start Date: 06/15/24 Status: Ordered Repeat number: 1 predniSONE 5 mg oral tablet 0 Refill(s), 0 Refills, 06/15/24 2:44:00 PM EST, Partial fill upon patient request if the prescription is for a schedule II opioid drug. Start Date: 06/15/24 Status: Ordered Repeat number: 1 Santyl 250 u/gm ointment 1 Unknown, 0 Refill(s), 0 Refills, 01/25/16 8:00:00 PM EDT, Partial fill upon patient request if theprescription is for a schedule II opioid drug. Start Date: 01/25/16 Status: Ordered Repeat number: 1 ubiquinone 100 mg oral capsule 0 Refill(s), 0 Refills, 02/25/24 2:13:00 PM EDT, Partial fill upon patient request if the prescription is for a schedule II opioid drug. Start Date: 02/25/24 Status: Ordered Repeat number: 1 Vitamin C 0 Refills, Maintenance, 04/01/15 12:57:42 PM EDT Start Date: 04/01/15 Status: Ordered Repeat number: 1 Vitamin D3 By Mouth, 0 Refills, Maintenance, 04/01/15 12:58:31 PM EDT Start Date: 04/01/15 Status: Ordered Repeat number: 1 Vitamin E By Mouth, Daily, 0 Refills, Maintenance, 04/01/15 12:52:03 PM EDT Start Date: 04/01/15 Status: Ordered Repeat number: 1 Problem List Condition Confirmation Course Effective Dates Status H ealth Status Informant Abnormal radiologic density Confirmed Active SVT - Supraventricular tachycardia 1 Confirmed Active Temporal arteritis Confirmed 10/04/09 Active Tobacco abuse Confirmed Active 1STRESS INDUCED Social History Social History Type Response Smoking Status Current every day sm akasher entered on: 05/21/18 Sex Sex Representation Female (finding) Patient Care team information Care Team Personnel Name: Tuan Anderson NP Position: [facility] Associate Professional Member Role: PCP Address: [address] [place] [address] [address] [facility] [address] Telecom: Name: Bushra Caceres RN Position: [facility] RN Member Role: Primary Care Nurse Name: Brook Castellon RN Position: [facility] Outreach Member Role: Primary Care Nurse Care Team Related Persons Name: CAMPBELL MCCARTY Insurance Providers Guarantor name: LORA WILLY Health Plan Information #: 1 Payer: MEDICARE PART B OUTPT Member Number: NA Policy Number: NA Group Number: NA Health Plan Information #: [address]ayer: [facility] INDEMN Member Number: NA Policy Number: NA Group Number: NA
--- OUTSIDE RECORDS SUMMARY | 2024-09-25 17:16 | XMS_ITS | Continuity of Care Document ---
Author Organization [facility] Address [address] [place] [address]- Care Team Providers Care Scaffold Worker Name Role Phone Justin ZHANG, Tuan Alvarez Primary Care Physician [phone] [id number] Date(s): 08/20/24 - 09/19/24 [facility] [address] [place] [address]- Encounter Type: Triage Allergies, Adverse Reactions, Alerts [...] Response Smoking Status Current every day sm oker entered on: 05/21/18 Sex Sex Representation Female (finding) Patient Care team information Care Team Personnel Name: Justin ZHANG, Tuan Alvarez Position: [facility] Associate Professional Member Role: PCP Address: [address] [place] [address] [address], [address] [facility] Cardiology [address] Telecom: Name: Bushra Caceres RN Position: [facility] RN Member Role: Primary Care Nurse Name: Brook Castellon RN Position: [facility] Outreach Member Role: Primary Care Nurse Care Team Related Persons Name: CAMPBELL MCCARTY Insurance Providers Guarantor name: LORA WILLY Health Plan Information #: 1 Payer: MEDICARE PART B OUTPT Member Number: NA Policy Number: NA Group Number: NA Health Plan Information #: 2 Payer: [facility] INDEMN Member Number: NA Policy Number: NA Group Number: NA
--- OUTSIDE RECORDS SUMMARY | 2024-09-25 17:16 | XMS_ITS | Patient Health Record ---
Author Organization [facility] Address [address] [place] [address] Care Team Providers Care Liquid Loader Name Role Phone Jaylene Silva MD Primary Care Provider Daniel Monique Jr Unavailable ALLERGIES Allergen (clinical drug ingredient) Drug/Non Drug Allergy documented on EMR Reaction Allergy Type Onset Date Status Camphor Unknown Drug Allergy Active diphenhydramine Antihistamine Unknown Drug Allergy Active Non-steroidal anti-inflammatory agent (FN) NSAIDS (uncoded) Unknown Allergy Active antibiotics (uncoded) Unknown Allergy Active REASON FOR REFERRAL No Information MEDICATIONS Medication SIG (Take, Route, Frequency, Duration) Notes Start Date End Date Status Vitamin E Beauty Act stephanie Multi Vitamin/Minerals - 1 Orally QD Active MiraLax (colon prep) 17 GM/SCOOP mixed with Gatorade or Crystal Light Orally begin at 5:00 p.m. the day before the procedure for 1 day 07/02/2022 Active Fish Oil Active IMMUNIZATIONS Vaccine Route Administration Date Status Comme nts Influenza Unknown 05/31/2021 Refused Influenza Unknown 07/02/2022 Refused SOCIAL HISTORY Tobacco Use: Social History Observation Description Date Details (start date - stop date) Current Smoker NA - NA Sex Assigned At : Social History Observation Description Sex Assigned At Unknown Tobacco Use/Smoking Question Answer Notes Patient is a current smoker How often do you smoke cigarettes? every day How many cigarettes a day do you smoke? 6-10 Are you interested in quitting? Thinking about q uitting Alcohol Screen Question Answer Notes Did you have a drink containing alcohol in the p ast year? No Points 0 Interpretation Negative PROBLEMS Problem Type ICD Code Onset Dates Problem Status W/U Status Risk SNOMED Code Notes Problem Rectal bleeding (K62.5) Active confirmed 89451646 Problem Personal history of colonic polyps (Z86.010) Active confirmed 995779973 Problem Change in bowel habits (R19.4) Active confirmed 265204625 Problem Hypertension, unspecified type (I10) Active confirmed [id number] PLAN OF TREATMENT Pending Test Test Name Order Date OCCULT BLOOD STOOL X3 (OBS) 02/27/2021 Future Test Test Name Order Date COLONOSCOPY 06/05/2017 COLONOSCOPY 05/31/2021 COLONOSCOPY 07/02/2022 Insurance Providers Payer Name Payer Address Payer Phone Subscriber Number Group Number Insured Name Patient Relationship to Insured Coverage Start Date Coverage End Date MEDICARE OF [place] [address] [place] [address] [phone] [id number] LORA AGUILERA Self - patient is the insured [facility] INDEMNITY [address] [place] [address] [id number] LORA AGUILERA Self - patient is the insured MEDICAL (GENERAL) HISTORY Medical History History ICD Code temporal arteritis Meniere's disease allergic rhinitis lung nodules SVT peripheral arterial disease coronary artery disease Colonoscopy 09/15, 10 mm tubu lar adenoma, three-year followup optional based on age. back problems Surgical History Surgery Date(Month/Year) dental surgery
--- OUTSIDE RECORDS SUMMARY | 2024-09-25 17:16 | XMS_ITS | Continuity of Care Document ---
Author Organization [facility] ter Address [address] [place] [address]- Care Team Providers Care Costing Analyst Name Role Phone Justin ZHANG, Tuan Alvarez Primary Care Physician [phone] [id number] Date(s): 08/08/24 - 09/17/[address] [address]- Attending Physician: Netta Hicks MD Admitting Physician: Netta Hicks MD Referring Physician: Netta Hicks MD Encounter Type: Pre-Outpt Allergies, Adverse Reactions, Alerts Substance Criticality Severity [...] Type Response Smoking Status Current every day enmanuel breann entered on: 05/21/18 Sex Sex Representation Female (finding) Patient Care team information Care Team Personnel Name: Tuan Anderson NP Position: [facility] Associate Professional Member Role: PCP Address: [address] [place] [address] [address], [address], [address], [address] [facility] [address] Telecom: Name: Bushra Caceres RN Position: [facility] RN Member Role: Primary Care Nurse Name: Brook Castellon RN Position: [facility] Outreach Member Role: Primary Care Nurse Care Team Related Persons Name: CAMPBELL MCCARTY Insurance Providers Guarantor name: LORA AGUILERA Health Plan Information #: 2 Payer: [facility] Member Number: [id number] Policy Number: NA Group Number: [id number] Health Plan Information #: 1 Payer: MEDICARE PART B OUTPT Member Number: [id number] Policy Number: NA Group Number: NA
--- OUTSIDE RECORDS SUMMARY | 2024-09-25 17:16 | XMS_ITS | Continuity of Care Document ---
Author Organization [facility] Address [address] [place] [address]- Care Team Providers Care Harness Fitter Name Role Phone Justin ZHANG, Tuan Alvarez Primary Care Physician [phone] [facility] [id number] Date(s): 09/08/24 - 09/15/24 [facility] [address] [place] [address]- Attending Physician: Kimberly To NP Admitting Physician: Kimberly To NP Referring Physician: Tuan Anderson NP Encounter Type: Office Visit Allergies, Adverse Reactions, Alerts Substance Criticality Severity Reaction Reaction Severity Status ibuprofen Active erythromycin Active Camphor Active antihistamines Activ e penicillin Active Medications ammonium lactate 12% topical cream [...] Active Tobacco abuse Confirmed Active 1STRESS INDUCED Vital Signs Most recent to oldest [Reference Range]: 1 Height 156 cm (09/08/24 1:22 PM) Weight 62.60 kg (09/08/24 1:22 PM) Oxygen Saturation [94-100 %] 97 % (09/08/24 1:22 PM) Pulse Rate [55-90 bpm] 97 bpm *H* (09/08/24 1:22 PM) Body Mass Index [18.5-24.99 kg/m2] 25.72 kg/m2 *H* (09/08/24 1:22 PM) Weight Obtained Via Patient/family state d (09/08/24 1:22 PM) Social History Social History Type Response Smoking Status Current every day enmanuel crain entered on: 05/21/18 Sex Sex Representation Female (finding) Patient Care team information Care Team Personnel Name: Taun Anderson NP Position: S Associate Professional Member Role: PCP Address: [address] [place] [address] [address], [address], [address], [address] [facility] [address]: Name: Bushra Caceres RN Position: [facility] RN Member Role: Primary Care Nurse Name: Brook Castellon RN Position: [facility] Outreach Member Role: Primary Care Nurse Care Team Related Persons Name: CAMPBELL MCCARTY Insurance Providers Guarantor name: LORA WILLY Health Plan Information #: 2 Payer: [facility] Member Number: [id number] Policy Number: NA Group Number: [id number] Health Plan Information #: 1 Payer: MEDICARE PART B OUTPT Member Number: [id number] Policy Number: NA Group Number: NA
--- OUTSIDE RECORDS SUMMARY | 2024-09-25 17:16 | XMS_ITS ---
Author Organization [facility] Address [address] [facility] [place] [address] Care Team Providers Care Log Cooker Name Role Phone José Luis CAMEJO, [facility] Primary Care Provider Tanisha Rodrigues Unavailable [phone] Allergies Allergen (clinical drug ingredient) Drug/Non Drug Allergy documented on EMR Reaction Allergy Type Onset Date Status Antihistemine (uncoded) contraindicated w/ tachycardia Allergy Active Camphor (uncoded) Unknown Allergy Ac tive Biaxin swollen face Drug Allergy Acti ve erythromycin Erythromycin swollen face Drug Allergy Active Motrin contraindicated w/ Meniere's Drug Allergy Active Penicillin intense itch Drug Allergy Act stephanie naproxen aleve contraindicated w/Meniere's Drug Allergy Active advil contraindicated w/Meniere's Drug Allergy Active REASON FOR VISIT At Risk Footcare, Painful Nail(s) aggravated by shoes and causing difficulty standing/walking., Skin problem(s) Medications Medication SIG (Take, Route, Frequency, Duration) Notes Start Date End Date Status Santyl 250 UNIT/GM 1 application to affected area Externally to Foot Ulcer Once a day for 30 days 01/26/2016 Not-Taking Aspirin Adult Low Dose 81 MG 1 tablet Orally Once a day Not-Taking Clindamycin HCl 300 MG 1 capsule Orally every 6 hrs for 7 days 12/22/2015 Not-Taking Custom Molded Shoes as directed Dx: 02/23/2016 Not-Taking Ammonium Lactate 12 % 1 application to affected area Externally Twice a day for 30 days Not-Taking Vitamin E Active Multivitamin Active Vitamin C Active Ammonium Lactate 12 % 1 application Externally to affected areas of dry skin to feet except for between the toes Twice a day for 30 days Active Folic Acid 20 MG Orally Act stephanie Social History Tobacco Use: Social History Observation Description Date Details (start date - stop date) Current Smoker NA - NA Tobacco use other than smoking: Question Answer Notes Are you an other tobacco user? No Tobacco Control (Standard) Question Answer Notes Tobacco use: Current smoker How often do you smoke cigarettes? Every day How many cigarettes a day do you smoke? 6-10 How soon after you wake up d o you smoke your first cigarette? 6-30 minutes Are you interested in quitting? Thinking about q uitting AUDIT-C (Standard) Question Answer Notes Did you have a drink containing alcohol in the p ast year? No Points 0 Interpretation Negative Vital Signs Height 5 ft 1.5 in in 09/07/2024 Weight 137 lbs 09/07/2024 BMI 25.46 kg/m2 09/07/2024 Blood pressure systolic 130 mm Hg 09/07/19 25 Blood pressure diastolic 62 mm Hg 025 Encounters Encounter Location Date Provider Diagnosis [facility] [address] 09/07/2024 Tanisha Antoine Atherosclerosis of stebbins artery of both lower extremities, with unspecified presence of clinical manifestation I70.203 ; Tinea unguium B35.1 ; Pain in right toe(s) M79.674 ; Pain in left toe(s) M79.675 and Xerosis of skin L85.3 Assessments Encounter Date Diagnosis (ICD Code) Assessment Notes Treatment Notes Treatment Clinical Notes Section Notes 09/07/2024 Atherosclerosis of stebbins artery of both lower extremities, with unspecified presence of clinical manifestation (ICD-10 - I70.203) Q7(A), Q8(2B), Q9(1B,2C) 09/07/2024 Tinea unguium (ICD-10 - B35.1) 09/07/2024 Pain in right toe(s) (ICD-10 - M79.674) 09/07/2024 Pain in left toe(s) (ICD-10 - M79.675) 09/07/2024 Xerosis of skin (ICD-10 - L85.3) Plan Of Treatment Next Appt Details Follow Up: 3 Months, Reason: Provider Name:Tanisha landis, 12/08/2024 02:30:00 PM, [address] [place] [address], [phone], Procedure Notes * Category Sub-Category Detail Notes Debride Nail 6-10 Nail debridement Due to the cl inical pathology outlined in the exam findings, performance of this nail treatment is medically necessary as its management by an unskilled/untrained nonprofessional would put this patients foot and overall health at risk. Therefore, debridement to affected nail(s), as described in exam ( TA, T1, T2, T3, T4, T5, T6, T7, T8, T9, ), was performed exclusively by the physician of record to reduce/remove overall nail length, girth, thickness, subungual debris, and necrotic tissue, by manual and/or electrical means through the use of a nail nipper and/or dremel-type precision thread grinder operator, to a more viable healthy nail plate or bed tissue 6-10 nails in total. Silver nitrate was used for any petechial bleeding as necessary. Definitive antifungal treatment options, both pharmaceutical and surgical, have been reviewed and discussed with the patient. The patient solely prefers the use of intermittent/as needed professional debridement services for their nail condition and understands the need for additional periodic treatments to maintain effectiveness in symptomatic relief - 15963 Keratoma Treatment Parring or Cutting o f Benign Hyperkeratotic Lesion(s) (-57) More than 4 Lesions - Due to the at risk nature of the patients medical condition as documented in the exam findings, performance of this keratoderma treatment is medically necessary as its management by an unskilled/untrained nonprofessional would put this patients foot and overall health at risk. Therefore, the benign hyperkeratotic lesions, ( 6 ) in total, locations as stated and described in the exam ( TA, T5, Sub met 1, 5 B/L), were pared, and/or cut utilizing a sterile 15 blade, tissue nippers, and/or power dremel instrumentation by the physician of record - 17175 Progress Notes * Sherrell AGUILERA MDOB: [birth year] (83 yo F)Acc No.[id number]:09/07/2024 Progress Note Patient:?Sherrell AGUILERA Provider:?Tanisha Antoine DPM :1940???Age:83 Y???Sex:Female D ate:09/07/2024 Address: [address], [id number] Pcp:Toni Ordonez MD Subjective: * Chief Complaints: * ???At Risk FootcarePainful N ail(s) aggravated by shoes and causing difficulty standing/walking.Skin problem(s) * HPI: ???At Risk footcare:?Pt States Last PCP Visit:?Date?05/12/2024 ???Skin problems:?Nature:?dryness , scaling.?Location:?B/L .?Course:?improved.? * ROS:?General/Constitutional:?Nausea?denies.?Vomiting?denies.?Hunger Thirst?denies.?Loss appetite?denies.?Chills?denies.?Fatigue?denies.?Fever?denies.?Night Sweats?denies.?Unexplained weight loss?denies.?Unexplained weight gain?denies.?HEENTM:?Dentures?admits.?Dizziness?admits.?Glasses/contacts?denies.?Retinopathy?de nies.?Blurred/double vision?denies.?TMJ?admits.?Discharge/drainage?denies.?Implants?denies.?Sore throat?denies.?Dental implants?denies.?Hard of hearing ?admits.?Difficulty chewing/swallowing/speaking?denies.?Nose bleeds?denies.?Sore mouth?denies.?Respiratory:?On Oxygen?denies.?Pneumonia/pleurisy?denies.?Bronchitis?denies.?Emphysema?denies.?C oughing?denies.?Cough blood?denies.?Shortness of breath?denies.?Wheezing?denies.?Cardiovascular:?Pacemaker?denies.?MVP?denies.?WPW?denies.?CHF?denies.?Heart attack?denies.?Septal defect?denies.?Rapid beat?admits.?Chest pain ?denies.?Atrial Fib.?denies.?Murmur/Palpitations?admits.?Gastrointestinal:?Hemorrhoids?denies.?Stomach/Abdominal pain?denies.?Dark blood stool?denies.?Irritable bowel ?denies.?Constipation?admits.?Diarrhea?denies.?Hematology:?Swelling?denies.?Clots?denies.?Varicose Veins?admits.?Bruising?denies.?Bleeding problem?denies.?Genitourinary:?Blood urine?denies.?Frequent/Painfu/urination/bladder control?admits.?Kidney stones?denies.?Infection (UTI)?admits.?Nephropathy?denies.?sex trans dis (STD)?denies.?Prostate?denies.?Musculoskeletal:?Hammertoes?denies.?Bunions?denies.?Back Pain?admits.?Muscle Cramps/ Resting?denies.?Muscle cramps / walking?denies.?Generalized aches and pains?denies.?Weakness?denies.?Integ.:?Madrid?denies.?Scars?denies.?Corns/calluses?admits.?Ingrown nails?denies.?Painful nails?denies.?Open Sores?denies.?Rashes?denies.?Neurologic:?Difficulty sleeping?admits.?Brain disorder?denies.?Numbness?denies.?Balance trouble?admits.?Confusion?denies.?Fainting/blackouts?denies.?Tingling?denies.?Tr emors?denies.? * Medical History:? * Surgical History:?Denies Pas t Surgical History * Hospitalization/Major Diagno stic Procedure:?Denies Past Hospitalization * Family History:?Mother: dece ased, diagnosed with Other malignant neoplasm of unspecified site.?Father: , poor circulation, foot problems.?Spouse: .? * Social History:?Tobacco Use:?Tobacco use other than smoking?Are you an other tobacco user??No ?Tobacco Control (Standard)?Tobacco use:?Current smoker ?How often do you smoke cigarettes??Every day ?How many cigarettes a day do you smoke??6-10 ?How soon after you wake up do you smoke your first cigarette??6-30 minutes ?Are you interested in quitting??Thinking about quitting ???Drugs/Alcohol:?Drugs?Have you used drugs other than those for medical reasons in the past 12 months??No ???Miscellaneous:?Caffeine: no. ?Children: no. ?Exercise: no. ?Marital status: . ?Occupation: retired-homemaker. ???Drug/Alcohol:?AUDIT-C (Standard)?Did you have a drink containing alcohol in the past year??No ?Points?0 ?Interpretation?Negative * Medications:?TakingVitamin E Vitamin C Multivitamin Folic Acid 20 MG Capsule Orally Ammonium Lactate 12 % Cream 1 application Externally to affected areas of dry skin to feet except for between the toes Twice a day Taking Vitamin E Taking Vitamin C Taking Multivitamin Taking Folic Acid 20 MG Capsule Orally Taking Ammonium Lactate 12 % Cream 1 application Externally to affected areas of dry skin to feet except for between the toes Twice a day Not-Taking/PRNAmmonium Lactate 12 % Cream 1 application to affected area Externally Twice a day Aspirin Adult Low Dose 81 MG Tablet Delayed Release 1 tablet Orally Once a day Santyl 250 UNIT/GM Ointment 1 application to affected area Externally to Foot Ulcer Once a day Custom Molded Shoes 1 pair Custom Shoes and 3 Sets of Custom heat molded inserts as directed Dx: Clindamycin HCl 300 MG Capsule 1 capsule Orally every 6 hrs Medication List reviewed and reconciled with the patientNot-Taking/PRN Ammonium Lactate 12 % Cream 1 application to affected area Externally Twice a day Not-Taking/PRN Aspirin Adult Low Dose 81 MG Tablet Delayed Release 1 tablet Orally Once a day Not-Taking/PRN Santyl 250 UNIT/GM Ointment 1 application to affected area Externally to Foot Ulcer Once a day Not-Taking/PRN Custom Molded Shoes 1 pair Custom Shoes and 3 Sets of Custom heat molded inserts as directed Dx: Not-Taking/PRN Clindamycin HCl 300 MG Capsule 1 capsule Orally every 6 hrs Medication List reviewed and reconciled with the patient * Allergies:?Penicillin: inten se itchErythromycin: swollen faceBiaxin: swollen faceadvil: contraindicated w/Meniere'saleve: contraindicated w/Meniere'sMotrin: contraindicated w/ Meniere'sAntihistemine: contraindicated w/ tachycardiaCamphoryes[Allergies Verified] Objective: * Vitals:?Ht: 5 ft 1.5 in, Wt: 137, BMI: 25.46, Shoe size: 8.5W, BP: 130/62 mm Hg, Ht-cm: 156.21 cm, Wt-k.14 kg. * Examination: ???Vascular: ?DP PULSES (B):?08/01, B/L.?PT PULSES (B):?08/01, B/L.?CAPILLARY FILL TIME:? delayed, all digits, B/L.?TROPHIC CONDITION-TEXTURE/ELASTICITY/TURGOR/HAIR GROWTH (B):? decreased, fragile, thin, shiny skin, with sparse to absent hair growth, B/L.?TEMPERTURE GRADIENT (C):? decreased, cool to cool, proximal to distal, B/L.?PIGMENTATION:?pale, B/L.?EDEMA (C):?1/4.?CLAUDICATION (C):?denies, B/L.?REST PAIN:?denies, B/L.?PARESTHESIA (C):?absent, B/L.?BURNING (C):?absent, B/L.?Nails: ?NAILS are:? Elongated, overgrown, dystrophic, lytic, greater than 3mm thick, discolored and friable with crumbly malodorous subungual debris, with pain on palpation,TA, T1, T2, T3, T4, T5, T6, T7, T8, T9.?Dermatologic: ?SKIN FINDINGS:?Skin exam reveals Keratotic lesion(s) located at TA, T5, Sub met 1, 5 B/L, Skin shows?approximately 50 percent LESS, sign(s) of, dryness, scaling, in a stocking fashion, no fissure(s) present, B/L.?Orthopedic: ?MUSCLE STRENGTH:?5/5 all groups in a symmetrical fashion, B/L.?Neurological: ?SENSORY:?Neurological exam reveals intact sensorium, pain sensation normal, vibration sensation intact, pinprick sensation is normal in the lower extremities, Pt denies, anesthesia, burning, paresthesia, tingling, B/L.?General Examination: ?GENERAL APPEARANCE:?Reveals a pleasant, alert, well nourished, well- developed, well hydrated individual, who demonstrates proper attention to hygiene/body habitus, and is in no acute distress, Pt serves as own historian for office visit today.?ORIENTED:?person, place, and time.? Assessment: * Assessment: 1.?Tinea unguium - B35.1???2 .?Atherosclerosis of stebbins artery of both lower extremities, with unspecified presence of clinical manifestation - I70.203 (Primary)???Notes :Q7(A), Q8(2B), Q9(1B,2C)???3.?Pain in right toe(s) - M79.674???4.?Pain in left toe(s) - M79.675???5.?Xerosis of skin - L85.3??? Plan: * Treatment: * Procedures:?Debride Nail 6-10:?Nail debridement?Due to the clinical pathology outlined in the exam findings, performance of this nail treatment is medically necessary as its management by an unskilled/untrained nonprofessional would put this patients foot and overall health at risk. Therefore, debridement to affected nail(s), as described in exam ( TA, T1, T2, T3, T4, T5, T6, T7, T8, T9, ), was performed exclusively by the physician of record to reduce/remove overall nail length, girth, thickness, subungual debris, and necrotic tissue, by manual and/or electrical means through the use of a nail nipper and/or dremel-type precision thread grinder operator, to a more viable healthy nail plate or bed tissue 6- 10 nails in total. Silver nitrate was used for any petechial bleeding as necessary. Definitive antifungal treatment options, both pharmaceutical and surgical, have been reviewed and discussed with the patient. The patient solely prefers the use of intermittent/as needed professional debridement services for their nail condition and understands the need for additional periodic treatments to maintain effectiveness in symptomatic relief - 85165.?Keratoma Treatment:?Parring or Cutting of Benign Hyperkeratotic Lesion(s)?(-57) More than 4 Lesions - Due to the at risk nature of the patients medical condition as documented in the exam findings, performance of this keratoderma treatment is medically necessary as its management by an unskilled/untrained nonprofessional would put this patients foot and overall health at risk. Therefore, the benign hyperkeratotic lesions, ( 6 ) in total, locations as stated and described in the exam (?TA, T5, Sub met 1, 5 B/L), were pared, and/or cut utilizing a sterile 15 blade, tissue nippers, and/or power dremel instrumentation by the physician of record - 94590.? * Procedure Codes:?16202 DEBRI DE NAIL, 6 OR MORE, Modifiers: XS 21233 TRIM SKIN LESIONS, OVER 4, Modifiers: XS , Q9 * Preventive Medicine:? ??Counseling:?Discussion:?-12: Office or other outpatient visit for the evaluation and management of an established patient, which required a medically appropriate history and/or examination and STRAIGHTFORWARD level of MEDICAL DECISION MAKING, 1 SELF-LIMITED OR MINOR PROBLEM, MINIMAL- NO AMOUNT/COMPLEXITY OF DATA TO BE REVIEWED/ANALYZED, AND MINIMAL RISK OF COMPLICATION/MORBIDITY. The visit on the day of the encounter encompassed interpreting the data and educating the patient as to the nature of their condition, treatment options available according to their individual PMH, meds, allergies, and overall health/living conditions, as well as any potential risks or complications that may occur from a failure to adhere to, and participate in, the recommended course of therapy. The discussion included a complete verbal, and/or written explanation of the examination results, any x-rays taken, the proposed diagnosis, and outline of the treatment plan. A schedule for future care needs was also explained. The patient verbalized an understanding of the instructions at this time and agreed to be an active participant in their treatment. If the patient should think of any questions or concerns after the visit, I have encouraged the patient to call the office.?Xerosis:?Given recent successful results to treatment, The patient is to cont the cream as directed.? * Follow Up:?3 Months * Images: * Sign off status: Completed true * Provider:?Tanisha Antoine DPM Date:?04/2025 Generated for Seda carpio/Fernando/Darshana on:?09/25/2024 05:16 PM EST History and Physical Notes * HPI (History of Present Illness) Category Sub-Category Detail Notes Category Not es Skin problems Nature: dryness , scaling Location: B/L Course: improved At Risk footcare Pt States Last PCP Visit: Date: 4 Examination Category Sub-Category Detail Notes Category Not es Neurological SENSORY: Neurological exa m reveals intact sensorium, pain sensation normal, vibration sensation intact, pinprick sensation is normal in the lower extremities, Pt denies, anesthesia, burning, paresthesia, tingling, B/L Dermatologic SKIN FINDINGS: Skin exam reveal s Keratotic lesion(s) located at TA, T5, Sub met 1, 5 B/L, Skin shows approximately 50 percent LESS, sign(s) of, dryness, scaling, in a stocking fashion, no fissure(s) present, B/L Orthopedic MUSCLE STRENGTH: 5/5 all groups in a symmetrical fashion, B/L General Examination GENERAL APPEARANCE: Reveals a pleasant, alert, well nourished, well-developed, well hydrated individual, who demonstrates proper attention to hygiene/body habitus, and is in no acute distress, Pt serves as own historian for office visit today ORIENTED: person, place, and t wil Vascular DP PULSES (B): 08/01, B/L PT PULSES (B): 08/01, B/L CAPILLARY FILL TIME: delayed, all digits , B/L TEMPERTURE GRADIENT (C): decreased, cool to cool, proximal to distal, B/L TROPHIC CONDITION-TEXTURE/ELASTICITY/TURGOR/HAIR GROWTH (B): decreased, fragile, thin, shiny skin, wi th sparse to absent hair growth, B/L EDEMA (C): 1/4 CLAUDICATION (C): denies, B/L REST PAIN: denies, B/L PIGMENTATION: pale, B/L PARESTHESIA (C): absent, B/L BURNING (C): absent, B/L Nails NAILS are: Elongated, overg rown, dystrophic, lytic, greater than 3mm thick, discolored and friable with crumbly malodorous subungual debris, with pain on palpation,TA, T1, T2, T3, T4, T5, T6, T7, T8, T9
--- OUTSIDE RECORDS SUMMARY | 2024-09-25 17:16 | XMS_ITS | Continuity of Care Document ---
Author Organization [facility] Address [address] [place] [address]- Care Team Providers Care Purchasing Contracting Clerk Name Role Phone Justin ZHANG, Tuan Alvarez Primary Care Physician [id number] Date(s): 07/27/24 - 08/26/24 [facility] [address] [place] [address]- Encounter Type: Triage Allergies, Adverse Reactions, Alerts [...] Team Personnel Name: Tuan Anderson NP Position: [facility] Associate Professional Member Role: PCP Address: [address] [place] [address] [address], [address], [address] [facility] [address] Telecom: Name: Bushra Caceres RN Position: [facility] RN Member Role: Primary Care Nurse Name: Brook Castellon RN Position: [facility] Outreach Member Role: Primary Care Nurse Care Team Related Persons Name: CAMPBELL MCCARTY Insurance Providers Guarantor name: LORA WILLY Health Plan Information #: 1 Payer: MEDICARE PART B OUTPT Member Number: NA Policy Number: NA Group Number: NA Health Plan Information #: 2 Payer: [facility] Member Number: NA Policy Number: NA Group Number: NA
--- OUTSIDE RECORDS SUMMARY | 2024-09-25 17:17 | XMS_ITS | Continuity of Care Document ---
Author Organization [facility] Address [address] [place] [address]- Care Team Providers Care Compressor Engineer Name Role Phone Justin ZHANG, Tuan Alvarez Primary Care Physician [id number] Date(s): 07/27/24 - 08/26/24 [facility] [address] [place] [address]- Encounter Type: Triage Allergies, Adverse Reactions, Alerts Substance Criticality Severity Reaction Reaction Severity Status ibuprofen Active erythromycin Active Camphor Active penicillin Active antihistamines Activ e Medications ammonium lactate 12% topical cream 1 [...] Team Personnel Name: Tuan Anderson NP Position: [facility] Associate Professional Member Role: PCP Address: [address] [place] [address] [address], 154, [address] [facility] [address] Telecom: Name: Bushra Caceres RN Position: [facility] RN Member Role: Primary Care Nurse Name: Brook Castellon RN Position: [facility] Outreach Member Role: Primary Care Nurse Care Team Related Persons Name: CAMPBELL MCCARTY Insurance Providers Guarantor name: LORA WILLY Health Plan Information #: 1 Payer: MEDICARE PART B OUTPT Member Number: NA Policy Number: NA Group Number: NA Health Plan Information #: 2 Payer: [facility] [employer]MN Member Number: NA Policy Number: NA Group Number: NA
--- OUTSIDE RECORDS SUMMARY | 2024-09-25 17:17 | XMS_ITS ---
Author Organization [facility] Address [address] [place] [address] Care Team Providers Care Electronics Scale Tester Name Role Phone José Luis CAMEJO, Toni Primary Care Provider Tanisha Rodrigues [phone] Encounters Encounter Location Date Provider Diagnosis [address] [address] 09/01/2024 Tanisha Antoine Plan Of Treatment Next Appt Details Provider Name:Tanisha landis, 12/08/2024 02:30:00 PM, [address] [place] [address], [phone], Progress Notes * Sherrell AGUILERA MDOB: [birth year] (83 yo F)Acc No.[id number]:09/01/2024 Progress Note Patient:?Sherrell AGUILERA Provider:?Tanisha Antoine DPM :1940???Age:83 Y???Sex:Female D ate:09/01/2024 Address:[address], [id number] Pcp:Toni Ordonez MD Subjective: * Chief Complaints: * ??? * Medical History:? Objective: * Vitals:? Assessment: Plan: * Treatment: * Images: * The named appointment provid er may or may not be the originator of this progress note, and it is not deemed complete until electronically signed by the appointment provider. Sign off status: Pending * Provider:?Tanisha Antoine DPM Date:?10/2024 Generated for Seda carpio/Fernando/Darshana on:?09/25/2024 05:16 PM EST
--- OUTSIDE RECORDS SUMMARY | 2024-09-25 17:17 | XMS_ITS | Continuity of Care Document ---
Author Organization [facility] Address [address] [place] [address]- Care Team Providers Care Transportation Engineering Technician Name Role Phone Justin ZHANG, Tuan Alvarez Primary Care Physician Encounter [facility] ACCT R [id number] Date(s): 07/27/24 - 08/26/24 [facility] [address] [place] [address]- Attending Physician: Admtr, Ar8 Admitting Physician: Admtr, Ar8 Referring Physician: Admtr, Ar8 Encounter Type: Triage Allergies, Adverse Reactions, Alerts [...] on: 05/21/18 Sex Sex Representation Female (finding) Cardiology * Event Display: Non [facility] Cardiovascular Results Authored Date: Laboratory * Event Display: Non BH Lab Results Authored Date: * Event Display: Non BH Lab Results Authored Date: Patient Care team information Care Team Personnel Name: Justin ZHANG, Tuan Alvarez Position: [facility] Associate Professional Member Role: PCP Address: [address] [place] [address] [address], 154, 161 [facility] [address] Telecom: Name: Bushra Caceres RN Position: [facility] RN Member Role: Primary Care Nurse Name: Brook Castellon RN Position: [facility] Outreach Member Role: Primary Care Nurse Care Team Related Persons Name: CAMPBELL MCCARTY Insurance Providers Guarantor name: LORA WILLY Health Plan Information #: 1 Payer: MEDICARE PART B OUTPT Member Number: NA Policy Number: NA Group Number: NA Health Plan Information #: 2 Payer: [facility] Member Number: NA Policy Number: NA Group Number: NA
--- OUTSIDE RECORDS SUMMARY | 2024-09-25 17:17 | XMS_ITS ---
Author Organization [facility] Address [address] [place] [address] Care Team Providers Care Healthcare Financial Analyst Name Role Phone José Luis CAMEJO, Asma Primary Care Provider Tanisha Rodrigues [phone] REASON FOR VISIT cx appt 09/01/24 Encounters Encounter Location Date Provider Diagnosis [address] [address] 08/28/2024 Tanisha Antoine Plan Of Treatment Next Appt Details Provider Name:Tanisha landis, 12/08/2024 02:30:00 PM, [address] [place] [address], [phone], Progress Notes * Sherrell AGUILERA MDOB: [birth year] (83 yo F)Acc No.[id number]:08/28/2024 Patient:?Sherrell AGUILERA :1940???Age:83 Y???Sex:Female Address:[address], [place], [address] * true * Date:? Generated for Printi ng/Faalang/eTransmitting on:?09/25/2024 05:16 PM EST
--- OUTSIDE RECORDS SUMMARY | 2024-09-25 17:17 | XMS_ITS | Patient Health Record ---
[facility] Address [address] [facility] [place] [address] Care Team Providers Care Administrative Tech Name Role Phone José Luis CAMEJO, [facility] Primary Care Provider Tanisha Rodrigues Unavailable [phone] Allergies Allergen (clinical drug ingredient) Drug/Non Drug [...] Active advil contraindicated w/Meniere's Drug Allergy Active Reason For Referral No Information Medications Medication SIG (Take, Route, Frequency, Duration) [...] Molded Shoes as directed Dx: 02/23/2016 Not-Taking Vitamin E Active Multivitamin Active Vitamin C Active Ammonium Lactate 12 % 1 application Externally to affected areas of dry skin to feet except for between the toes Twice a day for 30 days Active Folic Acid 20 MG Orally Act stephanie Ammonium Lactate 12 % 1 application to affected area Externally Twice a day for 30 days Not-Taking Social History Tobacco Use: Social History Observation [...] ast year? 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, with unspecified presence of clinical manifestation (I70.203) Active confirmed Q7(A), Q8(2B), Q9(1B,2C ) Problem 17762298 Claudication of left lower extremity (I73.9) Active confirmed Vital Signs Blood pressure diastolic 62 mm Hg 09/07/2024 Height 5 ft 1.5 in in 09/07/2024 Blood pressure systolic 130 mm Hg 09/07/2024 Weight 137 lbs 09/07/2024 BMI 25.46 kg/m2 09/07/2024 Encounters Encounter Location Date Provider Diagnosis [facility] [address] [place] [address] 06/02/2024 Tanisha Perica 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, with unspecified presence of clinical manifestation I70.203 ; Tinea unguium B35.1 ; Pain in right toe(s) M79.674 ; Pain in left toe(s) M79.675 and Xerosis of skin L85.[address] [facility] [address] 09/07/2024 Tanisha Perica 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, with unspecified presence of clinical manifestation I70.203 ; Tinea unguium B35.1 ; Pain in right toe(s) M79.674 ; Pain in left toe(s) M79.675 and Xerosis of skin L85.[address] [facility] [address] [address] 04/02/2024 Tanisha Branhamboby [facility] [address] 06/02/2024 Tanisha Elina [facility] [address] 08/28/2024 Tanisha Elina Assessments Encounter Date Diagnosis (ICD Code) Assessment Notes Treatment Notes Treatment Clinical Notes Section Notes 06/02/2024 Tinea unguium (ICD-10 - B35.1) 06/02/2024 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, with unspecified presence of clinical manifestation (ICD-10 - I70.203) Q7(A), Q8(2B), Q9(1B,2C) 09/07/2024 Tinea unguium (ICD-10 - B35.1) 09/07/2024 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, with unspecified presence of clinical manifestation (ICD-10 - I70.203) Q7(A), Q8(2B), Q9(1B,2C) 09/07/2024 Pain in right toe(s) (ICD-10 - M79.674) 06/02/2024 Pain in right toe(s) (ICD-10 - M79.674) 06/02/2024 Pain in left toe(s) (ICD-10 - M79.675) 09/07/2024 Pain in left toe(s) (ICD-10 - M79.675) 09/07/2024 Xerosis of skin (ICD-10 - L85.3) 06/02/2024 Xerosis of skin (ICD-10 - L85.3) Plan Of Treatment Pending Test Test Name Order Date X ray : Foot, right 3V 01/26/2016 X ray : Foot, right 3V 02/25/2019 05349-QTPLYPT NAIL, 6 OR MORE 10/23/2016 37417-SQBTJWR NAIL, 6 OR MORE 01/01/2017 16044-OUOWDYL NAIL, 6 OR MORE 12/06/2015 86292-JTERVXK NAIL, 6 OR MORE 03/22/2016 87136-BSAVQNR NAIL, 6 OR MORE 05/29/2016 26546-BVODHKZ NAIL, 6 OR MORE 08/14/2016 53152-Trdd Destruction, 1-14 08/14/2016 07278-Gokm Destruction, 1-14 05/29/2016 55831-Fdds Destruction, 1-14 03/22/2016 06560-Lprq Destruction, 1-14 01/26/2016 60903-Mkix Destruction, 1-14 10/23/2016 71262- Debride <25 sq cm 07/10/2016 51424- Debride <25 sq cm 05/09/2016 30222- Debride <25 sq cm 12/06/2015 82149- Debride <25 sq cm 12/22/2015 99495- Debride <25 sq cm 01/13/2016 78339- Debride <25 sq cm 01/26/2016 40624- Debride <25 sq cm 02/09/2016 32522- Debride <25 sq cm 02/23/2016 91598- Debride <25 sq cm 03/08/2016 22999- Debride <25 sq cm 03/22/2016 62675-QIIN SKIN LESIONS, OVER 4 11/09/19 18 27848-AIEH SKIN LESIONS, OVER 4 02/13/20 18 93617-HSUX SKIN LESIONS, OVER 4 08/09/19 18 65055-XPLJ SKIN LESIONS, 2 TO 4 05/01/20 17 84424-FMUS SKIN LESIONS, 2 TO 4 10/24/19 17 26511-INVP SKIN LESIONS, 2 TO 4 01/02/20 17 65408-FUBD SKIN LESIONS, 2 TO 4 05/14/20 18 24000-SNEN SKIN LESIONS, 2 TO 4 08/14/19 17 26318-MVGI SKIN LESION 05/29/2016 22290-LBZI SKIN LESION 04/11/2016 60007-EAND SKIN LESION 12/13/2015 X7256-RWRURIOI DYSTROPHIC NAILS ANY # K8369-UZIHJDAH DYSTROPHIC NAILS ANY # J7409-XWLGYIKX DYSTROPHIC NAILS ANY # J9817-JSNFXCKW DYSTROPHIC NAILS ANY # J0501-XXEMZQMO DYSTROPHIC NAILS ANY # Next Appt Details Provider Name:Tanisha Landis Carrol lnadis, 12/08/2024 02:30:00 PM, [address] [facility], [place], [address], Insurance Providers Payer Name Payer Address Payer Phone Subscriber Number Group Number Insured Name Patient Relationship to Insured Coverage Start Date Coverage End Date Medicare National Govt [employer] [address] [place] [address] [id number] Sherrell Rizvi Self - patient is the insured [address] [place] ([employer]) [address] [place] [address] [phone] [id number] Sherrell Rizvi Self - patient is the insured Medical (General) History Medical History History ICD Code Menieres disease Poor circulation Warts Measles Arthritis Back,Hip,and Knee pain Headaches/Migraines Osteoporosis Sciatica sinusitis seborrheic keratosis Incontinence Tachycardia Surgical History Surgery Date(Month/Year)
--- OUTSIDE RECORDS SUMMARY | 2024-09-25 17:17 | XMS_ITS | Continuity of Care Document ---
Author Organization [facility] Address [address] [place] [address]- Care Team Providers Care Global Logistics Analyst Name Role Phone Justin ZHANG, Tuan Alvarez Primary Care Physician [phone] Encounter [facility] Date(s): 07/28/24 - 09/02/[address] [address]- Attending Physician: Junior Colindres MD Admitting Physician: Junior Colindres MD Referring Physician: Junior Colindres MD Encounter Type: Pre-OutPatient One Time Allergies, Adverse Reactions, Alerts Substance Criticality Severity Reaction Reaction Severity Status ibuprofen Active erythromycin Active penicillin Active Camphor Active antihistamines Activ e Medications ammonium lactate [...] Response Smoking Status Current every day sm breann entered on: 05/21/18 Sex Sex Representation Female (finding) Patient Care team information Care Team Personnel Name: Tuan Anderson NP Position: [facility] Associate Professional Member Role: PCP Address: [address] [place] [address] [address], [address], [address], 161 [facility] [address] Telecom: Name: Bushra Caceres RN Position: [facility] RN Member Role: Primary Care Nurse Name: Brook Castellon RN Position: [facility] Outreach Member Role: Primary Care Nurse Care Team Related Persons Name: CAMPBELL MCCARTY Insurance Providers Guarantor name: LORA WILLY Health Plan Information #: 1 Payer: MEDICARE PART B OUTPT Member Number: [id number] Policy Number: NA Group Number: NA Health Plan Information #: 2 Payer: [facility] IN[employer]MN Member Number: [id number] Policy Number: NA Group Number: [id number]
== END 2024-09-25 15:38 | disposition home or self-care (01) ==
PROVIDERS: PCP Internal Medicine; Visit Provider Internal Medicine
DX: N39.0 Urinary tract infection, site not specified (principal)

== ENCOUNTER → 2024-09-25 15:08 | Outpatient (BNVA) | payer MEDICARE, OTHER, SELFPAY | PROVIDERS: PCP Internal Medicine; Visit Provider Internal Medicine | DX: N39.0 Urinary tract infection, site not specified (principal) | CPT/HCPCS: 99212 ==

== ENCOUNTER 2025-06-17 12:54 | Outpatient (AMB) | payer MEDICARE, OTHER, SELFPAY ==
--- NOTE | 2025-06-17 13:05 | MHC.PC.OV ---
Vital Signs 06/17/25 13:09 06/17/25 14:13 Height 5 ft 1.3 in Weight 138 lb BMI 25.8 BP 158/78 H 148/78 H Blood Pressure Location Rt brachial Position Sitting Respiration 14 Pulse 68 Pulse Source Pulse Oximeter Temp 98.1 F Temp Source Temporal Artery Scan Pulse Oximetry (%) 98 Oxygen Delivery Method Room Air Intake Visit Reasons: Annual Physical, New patient Supervisor Hot Dip Plating Required: No Accompanied by: Self / Same As Patient Allergies camphor (CAMPHOR) Allergy (Severe, Verified 06/17/25 14:14) SWELLING, swelling glands, extreme dizziness, swelling glands, extreme dizziness Antihistamines - Alkylamine (ANTIHISTAMINES - ALKYLAMINE) Allergy (Unknown, Verified 06/17/25 14:14) TACHYCARDIA erythromycin base (ERYTHROMYCIN BASE) Allergy (Unknown, Verified 06/17/25 14:14) SWELLING NSAIDS (Non-Steroidal Anti-Inflamma (NSAIDS (NON-STEROIDAL ANTI-INFLAMMA) Allergy (Unknown, Verified 06/17/25 14:14) NOT TO TAKE penicillin V Allergy (Unknown, Verified 06/17/25 14:14) itching Penicillins (PENICILLINS) Allergy (Unknown, Verified 06/17/25 14:14) ITCHY ALL ANTIBIOTICS Allergy (Unknown, Uncoded 06/17/25 14:14) UNKNOWN All antibiotics Allergy (Unknown, Uncoded 06/17/25 14:14) caused Meniere's disease, very probable cause of temporal ar antihistamine Allergy (Unknown, Uncoded 06/17/25 14:14) contraindicated with tachycardia Erythromycin Allergy (Unknown, Uncoded 06/17/25 14:14) face swelling NSAIDs Allergy (Unknown, Uncoded 06/17/25 14:14) contraindicated with Meniere's disease Medication List - Last Reconciled 06/17/25 by Itzel Membreno PA-C cranberry extract 425 mg PO DAILY magnesium citrate 100 mg PO DAILY multivitamin 1 tab PO DAILY niacin 100 mg PO DAILY Tobacco use date assessed: 06/17/25 Fall risk assessment: No Falls in past year Last assessed Fall Risk: 06/17/25 Dental Screening Dental Screen Date: 06/17/25 Did you have a dental visit in the last 12 months?: No Did you have a dental problem in the last 6 months where you did not have access to dental care?: No Was dental information given to patient?: Patient has dentist (patient has dentures) HPI HPI Comments History of Present Illness Details History of Present Illness The patient is an 84-year-old individual presenting for a new patient annual physical exam. The patient has a history of high blood pressure, which is a change from a previous history of chronic low blood pressure. The patient has been taking a naturopathic remedy for hypertension for less than two months. The patient reports a history of recurrent urinary tract infections and calcium oxalate crystals for over two years. The patient states that past UTIs were diagnosed on urinalysis without symptoms, but recalls an episode two years ago with urinary frequency and back pain. The patient also has a history of incontinence. Past medical history is significant for peripheral vascular disease, Meniere's disease for 35 years, and sciatica, which limits the patient's ability to exercise. The patient has tried child care giver and electrical stimulation for sciatica without relief. The patient also has a history of being on prednisone for five years, which is a risk factor for osteoporosis. Regarding preventative screenings, the patient's last colonoscopy was prior to 2018. The patient declines mammograms due to pain. The patient also declined a bone scan for osteoporosis, stating a belief that the condition is already present and a preference for naturopathic remedies. The patient missed the last scheduled colonoscopy and was supposed to reschedule. Family history is notable for a mother who of colon cancer and a sister with thyroid disease. There is no family history of breast cancer. The patient is a current smoker. Recent blood work from December 2023 was reviewed and noted to be largely normal, including a CBC, electrolytes, kidney function (GFR >60), hemoglobin A1c of 5.5, magnesium, liver enzymes, vitamin D, and thyroid function tests. Social History - Tobacco Use: The patient is a current smoker. - Exercise: The patient reports being unable to exercise much due to pain from sciatica. - Functional Status: The patient reports getting short of breath when carrying groceries up three flights of stairs to the apartment. - Alternative Medicine: The patient reports occasionally seeing a paralegal instructor and taking naturopathic remedies. [facility] Medical History (Updated 06/17/25 @ 14:19 by Itzel Membreno PA-C) UTI (urinary tract infection) Essential hypertension Annual physical exam Enlarged thyroid Smoker Chronic back pain Coronary artery disease Peripheral artery disease Lung nodules SVT (supraventricular tachycardia) Allergic rhinitis Meniere disease Temporal arteritis Surgical History History of dental surgery History of colonoscopy Social History Housing: Apartment Alcohol intake: current Alcohol intake frequency: does not drink Patient Tobacco Use Status: Current everyday Tobacco user Tobacco use type: Cigarette Cigarettes Per Day: 10 service: No Current occupational status: retired Cognitive needs: No Hearing needs: No Vision needs: No Questionnaire PHQ-9 Over the last 2 weeks, how often have you been bothered by any of the following problems? 1. Little interest or pleasure in doing things: not at all 2. Feeling down, depressed, or hopeless: not at all 3. Trouble falling or staying asleep, or sleeping too much: not at all 4. Feeling tired or having little energy: not at all 5. Poor appetite or overeating: not at all 6. Feeling bad about yourself - or that you are a failure or have let yourself or your family down: not at all 7. Trouble concentrating on things, such as reading the newspaper or watching television: not at all 8. Moving or speaking so slowly that other people could have noticed. Or the opposite - being so fidgety or restless that you have been moving around a lot more than usual: not at all 9. Thoughts that you would be better off or of hurting yourself in some way: not at all Total score: 0 Depression Screening Interpretation: Negative Depression Screening Done: Yes 79940 - PHQ-9 Billing: Yes Source: Developed by Drs. Valeriy Hernandez, Amina Plasencia, Sharan Pelletier and colleagues, with an educational ana from [employer]. Thrive Questionnaire Date Thrive assessed: 06/17/25 I am a: Patient What is your living situation today?: I have a steady place to live Within the past 12 months, did the food you bought not last and you didn't have the money to get more?: Never true Within the past 12 months, did you worry whether your food would run out before you got money to buy more?: Never true Do you have trouble paying for medicines?: No Do you have trouble getting transportation to medical appointments?: No Do you have trouble paying your heating and electricity bill?: No Do you have trouble taking care of your child, family member or friend?: No Do you have trouble with day-to-day activities such as bathing, preparing meals, shopping, managing finances, etc.?: No Are you currently unemployed and looking for a job?: No Are you interested in more education?: No Please select the resources that you would like help with: None THRIVE Score: 0 AUDIT C Alcohol Use Questionnaire (AUDIT-C) 1. How often do you have a drink containing alcohol?: Never 3. How often do you have six or more drinks on one occasion?: Never Total Score: 0 Score Reviewed/Action Taken: No DEEL-7 AMB Questionnaire EDEL-7 Date EDEL - 7 assessed: 06/17/25 Feeling nervous, anxious, or on edge: 0 = Not at all Not being able to stop or control worryin = Not at all Worrying too much about different things: 0 = Not at all Trouble relaxin = Not at all Being so restless that it is hard to sit still: 0 = Not at all Becoming easily annoyed or irritable: 0 = Not at all Feeling afraid as if something awful might happen: 0 = Not at all Total EDEL-7 score (0-4 normal; 5-9 mild; 10-14 moderate; 15-21 severe): 0 Source: Developed by Drs. Valeriy Hernandez, Amina Plasencia, Sharan Pelletier and colleagues, with an educational ana from [employer]. EDEL-7 Assessment Billing EDEL-7 Assessment Tool: EDEL-7 Assessment 78510 Review of Systems Narrative Review of Systems - Constitutional: Denies unintentional weight loss. - Cardiovascular: Reports dyspnea on exertion when climbing three flights of stairs with groceries. - Denies chest pain at rest or with mild exertion. - Respiratory: Reports dyspnea on exertion, as noted above. - Gastrointestinal: Reports occasional unspecified gastrointestinal problems. - Denies black or bloody stools. - Reports regular bowel movements. - Genitourinary: Reports a history of recurrent UTIs and calcium oxalate crystals. - Denies current symptoms of dysuria. - Reports past history of urinary frequency and back pain associated with a UTI. - Musculoskeletal: Reports sciatica, which limits exercise. - Reports excruciating pain in the upper arms when a blood pressure cuff is inflated. Const All systems reviewed & are unremarkable except as noted in HPI and below Physical exam (Primary Care) Vital Signs: Last Vital Signs Temp 98.1 F 06/17/25 13:09 Pulse 68 06/17/25 13:09 Resp 14 06/17/25 13:09 BP 158/78 H 06/17/25 13:09 Pulse Ox 98 06/17/25 13:09 Oxygen Delivery Method Room Air 06/17/25 13:09 Care Plan Goal for BP management: <140/90 patient to monitor her blood pressure and return in 2 weeks with blood pressure diary and blood pressure monitor BMI result Body Mass Index 25.8 BMI Assessment/Plan discussion: High BMI High, discussed plan: lifestyle, weight reduction, dietary, physical activity, alcohol moderation and other Tobacco/Smoking Status: Tobacco use Status Tobacco use date assessed 06/17/25 06/17/25 13:17 Patient Tobacco Use Status Current everyday Tobacco 06/17/25 13:17 Tobacco use type Cigarette 06/17/25 13:17 e-Cigarette/Vaping Use 06/17/25 13:17 PHQ-9: PHQ-9 Score PHQ-9: Total score 0 06/17/25 13:17 Depression Screening Interpretation: Negative Thrive Assessment: Date of Thrive Assessment Date Thrive assessed 06/17/25 06/17/25 13:17 Narrative Physical Exam Appearance: Alert. Oriented X3. No acute distress. Head: Normal external exam. Normocephalic. Atraumatic. Eyes: Pupils are equal, round, and reactive to light. Extraocular movements intact. Conjunctiva and sclera normal. Eyelids normal. Ears: External auditory canal normal. Tympanic membranes normal. Throat: Pharynx normal. Uvula midline. Moist mucous membranes. Neck: Normal inspection. Neck supple. Full range of motion. No adenopathy. Thyroid is slightly enlarged, possible nodule noted. No meningeal signs. No neck mass noted. Cardiovascular: Normal heart rate and rhythm. Heart sound normal. No murmurs noted. Pulses normal throughout. Respiratory: No respiratory distress. Painless inspiration. Breath sounds normal. No wheezes/rales/rhonchi noted. Chest nontender. No accessory muscle usage noted or decreased air movement noted. Abdomen: Soft and nontender. Bowel sounds normal in all 4 quadrants. No distention noted. No organomegaly noted. No visible injury noted. Back: No costovertebral angle tenderness. Full range of motion noted. Skin: Skin warm and dry. Normal skin color. Normal skin turgor. No rashes/lesions/lacerations noted. Extremities: No lower extremity edema. Extremities exhibit normal range of motion. Extremities nontender. Neuro: Oriented X 3. No motor deficit. No sensory deficit. Reflexes normal. Office Procedures Flu Questionnaire Does the patient have a severe egg allergy?: No Does the patient have severe life threatening allergies?: No Does the patient have a fever or illness today?: No Has the patient ever had Guillain-Boise Syndrome?: No Has the patient ever had any past reaction to a flu shot?: No Immunizations Fluarix [id number] (PF) 45 mcg (15 mcg x 3)/0.5 mL IM syringe Performing Provider: Itzel Membreno PA-C [facility] Documented (not given) by: ALY Levy on 06/17/25 13:20 Reason Not Given: Patient Refused Results Reviewed Results Reviewed: Results - Review of prior labs from December 2023: CBC normal, sodium, potassium, and kidney function normal with GFR >60. - Hemoglobin A1c was 5.5%. - Magnesium, liver enzymes, total protein, vitamin D, and thyroid studies were all normal. Coding Level of Care Code New Pt Level 4 (77400) New Pt Prev Care >65yr (20255) Diagnoses Annual physical exam Z00.00 Essential hypertension I10 Enlarged thyroid E04.9 UTI (urinary tract infection) N39.0 Additional Codes PHQ-9 - 64205 - PHQ-9 Billing: Yes ([id number]) EDEL-7 Assessment Billing - EDEL-7 Assessment Tool: EDEL-7 Assessment 95340 ([id number]) Time Spent (min) 70 Assessment & Plan Assessment & Plan (1) Annual physical exam: Code(s): Z00.00 - Encounter for general adult medical examination without abnormal findings Category: Medical Plan: Comprehensive fasting labs were ordered, including a CBC, CMP, HbA1c, inflammatory markers, TSH, urinalysis, magnesium, cholesterol panel, vitamin B12, and vitamin D. A referral was placed to Gastroenterology for a colonoscopy, as the patient is due for screening and missed a previous appointment. The patient declined a mammogram for breast cancer screening, citing pain during the procedure. The patient declined a bone density scan for osteoporosis screening. (2) Essential hypertension: Code(s): I10 - Essential (primary) hypertension Category: Medical Plan: The patient was found to have Stage 1 hypertension with in-office blood pressure readings of 158/78 mmHg and 148/72 mmHg. The plan is to monitor blood pressure at home once daily for two weeks, keeping a log of the readings. The patient was educated on proper technique for using the wrist blood pressure monitor. The patient was provided with information on lifestyle modifications to naturally lower blood pressure. A follow-up appointment is scheduled in two weeks to review the blood pressure log and determine if antihypertensive medication is needed. (3) Enlarged thyroid: Code(s): E04.9 - Nontoxic goiter, unspecified Category: Medical Plan: A physical exam revealed a palpably enlarged thyroid with a possible nodule, which is concerning given the patient's family history of thyroid disease. A thyroid ultrasound was ordered to further evaluate the thyroid gland. A TSH level is included in the ordered blood work. (4) UTI (urinary tract infection): Code(s): N39.0 - Urinary tract infection, site not specified Category: Medical Plan: The patient has a history of recurrent UTIs and calcium oxalate crystals and desires more frequent testing. Extensive patient education was provided, explaining that a standard urinalysis will detect abnormalities like crystals and that a separate order is not available or necessary. A urinalysis was ordered as part of the annual labs. It was explained that insurance might not cover frequent asymptomatic screening, but the patient can request a urine test every few months with the understanding of potential [id number] costs. Plan Plan Patient was informed and verbally consented to the use of an ambient scribe for clinic note documentation during this visit. 1. Annual Health Maintenance Comprehensive fasting labs were ordered, including a CBC, CMP, HbA1c, inflammatory markers, TSH, urinalysis, magnesium, cholesterol panel, vitamin B12, and vitamin D. A referral was placed to Gastroenterology for a colonoscopy, as the patient is due for screening and missed a previous appointment. The patient declined a mammogram for breast cancer screening, citing pain during the procedure. The patient declined a bone density scan for osteoporosis screening. 2. Essential (Primary) Hypertension The patient was found to have Stage 1 hypertension with in-office blood pressure readings of 158/78 mmHg and 148/72 mmHg. The plan is to monitor blood pressure at home once daily for two weeks, keeping a log of the readings. The patient was educated on proper technique for using the wrist blood pressure monitor. The patient was provided with information on lifestyle modifications to naturally lower blood pressure. A follow-up appointment is scheduled in two weeks to review the blood pressure log and determine if antihypertensive medication is needed. 3. Goiter, Unspecified A physical exam revealed a palpably enlarged thyroid with a possible nodule, which is concerning given the patient's family history of thyroid disease. A thyroid ultrasound was ordered to further evaluate the thyroid gland. A TSH level is included in the ordered blood work. 4. Recurrent Urinary Tract Infections The patient has a history of recurrent UTIs and calcium oxalate crystals and desires more frequent testing. Extensive patient education was provided, explaining that a standard urinalysis will detect abnormalities like crystals and that a separate order is not available or necessary. A urinalysis was ordered as part of the annual labs. It was explained that insurance might not cover frequent asymptomatic screening, but the patient can request a urine test every few months with the understanding of potential [id number] costs. Discussion Notes I discussed performing a comprehensive new patient visit and annual physical exam, including ordering a full panel of bloodwork and a urinalysis. I addressed the patient's concerns regarding hypertension, noting the elevated in-office readings. I outlined a plan for two weeks of home blood pressure monitoring to differentiate between true hypertension and white coat hypertension before considering medication, and I provided education on lifestyle changes and proper cuff use. I noted a finding of an enlarged thyroid with a possible nodule on exam and, given the patient's family history, ordered a thyroid ultrasound for further evaluation. We had an extensive discussion about screening tests. I informed the patient that records indicated a missed colonoscopy appointment and provided a referral to reschedule. The patient declined a mammogram and a bone density scan, and I documented this refusal. I spent considerable time educating the patient on urinalysis testing, explaining that a standard urine test is sufficient to detect abnormalities like calcium oxalate crystals and that a separate, specific order for crystals does not exist. I also explained that frequent testing without symptoms is generally not recommended and may not be covered by insurance, but I agreed to order tests as requested if the patient understands the potential for a bill. I advised the patient to follow up in two weeks to review all results and the blood pressure log. Orders: Orders C Reactive Protein Today Z00.00 - Encounter for general adult medical examination without abnormal findings TSH reflex Free T4 Today Z00.00 - Encounter for general adult medical examination without abnormal findings Vitamin B12 and Folate Today Z00.00 - Encounter for general adult medical examination without abnormal findings Erythrocyte Sedimentation Rate Today Z00.00 - Encounter for general adult medical examination without abnormal findings Complete Blood Count Auto Diff Today Z00.00 - Encounter for general adult medical examination without abnormal findings Influenza [id number] Immunization Today Z23 - Encounter for immunization Hemoglobin A1c Today Z00.00 - Encounter for general adult medical examination without abnormal findings UA CC w/rflx Micro + Cult Today Z00.00 - Encounter for general adult medical examination without abnormal findings Magnesium Today Z00.00 - Encounter for general adult medical examination without abnormal findings Lipid Panel Today Z00.00 - Encounter for general adult medical examination without abnormal findings Vitamin D 25-OH Total Today Z00.00 - Encounter for general adult medical examination without abnormal findings Comprehensive [place]. Panel Fast Today Z00.00 - Encounter for general adult medical examination without abnormal findings US thyroid Today E04.9 - Nontoxic goiter, unspecified Referrals Gastroenterology Referral Z12.11 - Encounter for screening for malignant neoplasm of colon Patient Instructions: Patient Instructions - Go to a lab for fasting blood work and a urine test. - You must not eat or drink anything except water or black coffee for 10-12 hours before the tests. - Contact the gynecologist's office to schedule your colonoscopy. - The radiology department will call you to schedule a thyroid ultrasound. - Check your blood pressure once a day using your wrist monitor. - Write down the date, time, and the reading in a log. - Review the handouts provided on how to naturally lower your blood pressure through diet and other lifestyle changes. - Return to the office in two weeks for a follow-up appointment to review your blood pressure log and lab results. - Call the office if you experience symptoms of a urinary tract infection, such as burning with urination, feeling like you have to urinate frequently, or back pain.
[2025-06-17 13:09] VITALS: BP 158/78; PULSE 68; RESP 14; TEMP 36.7; O2SAT 98; BMI 25.8
[2025-06-17 14:13] VITALS: BP 148/78
== END 2025-06-17 14:08 | disposition home or self-care (01) ==
LOC: HO.HMCSH 12:54
PROVIDERS: PCP Physician Assistant Medical; Visit Provider Physician Assistant Medical
DX: I10 Essential (primary) hypertension (principal); E04.9 Nontoxic goiter, unspecified; N39.0 Urinary tract infection, site not specified; Z23 Encounter for immunization

== ENCOUNTER → 2025-06-17 12:54 | Outpatient (BNVA) | payer MEDICARE, OTHER, SELFPAY | PROVIDERS: PCP Physician Assistant Medical; Visit Provider Physician Assistant Medical | DX: Z00.00 Encounter for general adult medical examination without abnormal findings (principal); I10 Essential (primary) hypertension; E04.9 Nontoxic goiter, unspecified; N39.0 Urinary tract infection, site not specified; Z13.31 Encounter for screening for depression; Z13.39 Encounter for screening examination for other mental health and behavioral disorders | CPT/HCPCS: 96127; 99202 ==

== ENCOUNTER 2025-07-01 14:20 | Outpatient (AMB) | payer MEDICARE, OTHER, SELFPAY ==
--- NOTE | 2025-07-01 14:23 | MHC.PC.OV ---
Vital Signs 07/01/25 14:24 Height 5 ft 1.3 in Weight 136 lb BMI 25.4 BP 156/90 H Respiration 14 Pulse 90 Pulse Source Pulse Oximeter Temp 98.1 F Temp Source Temporal Artery Scan Pulse Oximetry (%) 94 Oxygen Delivery Method Room Air Intake Visit Reasons: 2 WK follow up BP Apprentice/Lineman Required: No Accompanied by: Self / Same As Patient Allergies camphor (CAMPHOR) Allergy (Severe, Verified 07/01/25 15:21) SWELLING, swelling glands, extreme dizziness, swelling glands, extreme dizziness Antihistamines - Alkylamine (ANTIHISTAMINES - ALKYLAMINE) Allergy (Unknown, Verified 07/01/25 15:21) TACHYCARDIA erythromycin base (ERYTHROMYCIN BASE) Allergy (Unknown, Verified 07/01/25 15:21) SWELLING NSAIDS (Non-Steroidal Anti-Inflamma (NSAIDS (NON-STEROIDAL ANTI-INFLAMMA) Allergy (Unknown, Verified 07/01/25 15:21) NOT TO TAKE penicillin V Allergy (Unknown, Verified 07/01/25 15:21) itching Penicillins (PENICILLINS) Allergy (Unknown, Verified 07/01/25 15:21) ITCHY ALL ANTIBIOTICS Allergy (Unknown, Uncoded 07/01/25 15:21) UNKNOWN All antibiotics Allergy (Unknown, Uncoded 07/01/25 15:21) caused Meniere's disease, very probable cause of temporal ar antihistamine Allergy (Unknown, Uncoded 07/01/25 15:21) contraindicated with tachycardia Erythromycin Allergy (Unknown, Uncoded 07/01/25 15:21) face swelling NSAIDs Allergy (Unknown, Uncoded 07/01/25 15:21) contraindicated with Meniere's disease Medication List - Last Reconciled 07/01/25 by Itzel Membreno PA-C cranberry extract 425 mg PO DAILY magnesium citrate 100 mg PO DAILY multivitamin 1 tab PO DAILY niacin 100 mg PO DAILY Tobacco use date assessed: 06/17/25 Dental Screening Dental Screen Date: 06/17/25 HPI HPI Comments History of Present Illness Details History of Present Illness The patient is an 84 year old female presenting for a two-week blood pressure check. She has been monitoring her blood pressure at home with a wrist cuff device, which she notes provides erratic readings. Her home log shows readings have not exceeded 140 mmHg systolic, with one reading at 135/50 mmHg, and diastolic values have been low, ranging from 42 to 58 mmHg. The patient is not on any blood pressure medications and reports a history of typically having low blood pressure. The patient expresses significant anxiety regarding blood pressure medications, stating her was killed by them. She reports her late was on an alpha-mandy, which she believes caused him to be in and out of the hospital, and was later switched to a calcium channel mandy while having a bleeding disorder and low hemoglobin. She states that after being put back on the alpha-mandy, he developed bronchiolitis obliterans organizing pneumonia and subsequently from pulmonary hypertension, which she attributes to the medication. The patient also reports a history of peripheral artery disease, which she believes is from taking prednisone for five years to prevent blindness. She has a history of Meniere's disease, which she attributes to antibiotics taken 40 years ago for pneumonia. 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 Social History - The patient's is , and she discusses his medical history and cause of extensively. - She exhibits significant mistrust in medications and medical protocols based on her 's experience and her own research. [facility] Medical History (Updated 07/01/25 @ 15:24 by Itzel Membreno PA-C) Problem related to health literacy Sciatica UTI (urinary tract infection) Essential hypertension Annual physical exam Enlarged thyroid Smoker Chronic back pain Coronary artery disease Peripheral artery disease Lung nodules SVT (supraventricular tachycardia) Allergic rhinitis Meniere disease Temporal arteritis Surgical History History of dental surgery History of colonoscopy (~08/31/17) Social History Housing: Apartment Alcohol intake: current Alcohol intake frequency: does not drink Patient Tobacco Use Status: Current everyday Tobacco user Tobacco use type: Cigarette Cigarettes Per Day: 10 service: No Current occupational status: retired Cognitive needs: No Hearing needs: No Vision needs: No Questionnaire PHQ-9 Over the last 2 weeks, how often have you been bothered by any of the following problems? 1. Little interest or pleasure in doing things: not at all 2. Feeling down, depressed, or hopeless: not at all 3. Trouble falling or staying asleep, or sleeping too much: not at all 4. Feeling tired or having little energy: not at all 5. Poor appetite or overeating: not at all 6. Feeling bad about yourself - or that you are a failure or have let yourself or your family down: not at all 7. Trouble concentrating on things, such as reading the newspaper or watching television: not at all 8. Moving or speaking so slowly that other people could have noticed. Or the opposite - being so fidgety or restless that you have been moving around a lot more than usual: not at all 9. Thoughts that you would be better off or of hurting yourself in some way: not at all Total score: 0 Depression Screening Interpretation: Negative Depression Screening Done: Yes 47449 - PHQ-9 Billing: Yes Source: Developed by Drs. Valeriy Hernandez, Amina Plasencia, Sharan Pelletier and colleagues, with an educational ana from [employer]. Thrive Questionnaire Date Thrive assessed: 06/17/25 I am a: Patient What is your living situation today?: I have a steady place to live Within the past 12 months, did the food you bought not last and you didn't have the money to get more?: Never true Within the past 12 months, did you worry whether your food would run out before you got money to buy more?: Never true Do you have trouble paying for medicines?: No Do you have trouble getting transportation to medical appointments?: No Do you have trouble paying your heating and electricity bill?: No Do you have trouble taking care of your child, family member or friend?: No Do you have trouble with day-to-day activities such as bathing, preparing meals, shopping, managing finances, etc.?: No Are you currently unemployed and looking for a job?: No Are you interested in more education?: No Please select the resources that you would like help with: None THRIVE Score: 0 AUDIT C Alcohol Use Questionnaire (AUDIT-C) 1. How often do you have a drink containing alcohol?: Never 3. How often do you have six or more drinks on one occasion?: Never Total Score: 0 Score Reviewed/Action Taken: No EDEL-7 AMB Questionnaire EDEL-7 Date EDEL - 7 assessed: 06/17/25 Feeling nervous, anxious, or on edge: 0 = Not at all Not being able to stop or control worryin = Not at all Worrying too much about different things: 0 = Not at all Trouble relaxin = Not at all Being so restless that it is hard to sit still: 0 = Not at all Becoming easily annoyed or irritable: 0 = Not at all Feeling afraid as if something awful might happen: 0 = Not at all Total EDEL-7 score (0-4 normal; 5-9 mild; 10-14 moderate; 15-21 severe): 0 Source: Developed by Drs. Valeriy Hernandez, Amina Plasencia, Sharan Pelletier and colleagues, with an educational ana from [employer]. EDEL-7 Assessment Billing EDEL-7 Assessment Tool: EDEL-7 Assessment 16224 Review of Systems Narrative Review of Systems - Cardiovascular: Reports historically low blood pressure. - Musculoskeletal: Reports sciatica, described as her worst problem . - Neurological: Reports history of Meniere's disease. - Constitutional: Reports agonizing pain and sensitivity in her upper arm from blood pressure cuff inflation. - All other systems reviewed and are negative. Const All systems reviewed & are unremarkable except as noted in HPI and below Physical exam (Primary Care) Vital Signs: Last Vital Signs Temp 98.1 F 07/01/25 14:24 Pulse 90 07/01/25 14:24 Resp 14 07/01/25 14:24 Pulse Ox 94 07/01/25 14:24 Oxygen Delivery Method Room Air 07/01/25 14:24 Care Plan Goal for BP management: <140/90 patient to return in 1 month and discuss this with Dr. Laurent she was very hesitant about starting any medications and was not allowing us to take a proper blood pressure with are machines here or a manual BMI result Body Mass Index 25.4 BMI Assessment/Plan discussion: High BMI High, discussed plan: lifestyle, weight reduction, dietary, physical activity, alcohol moderation and other Tobacco/Smoking Status: Tobacco use Status Tobacco use date assessed 06/17/25 07/01/25 14:30 Patient Tobacco Use Status Current everyday Tobacco 07/01/25 14:30 Tobacco use type Cigarette 07/01/25 14:30 PHQ-9: PHQ-9 Score PHQ-9: Total score 0 07/01/25 14:30 Depression Screening Interpretation: Negative Thrive Assessment: Date of Thrive Assessment Date Thrive assessed 06/17/25 07/01/25 14:30 Narrative Physical Exam Appearance: Alert. Oriented X3. No acute distress. Head: Normal external exam. Normocephalic. Atraumatic. Eyes: Pupils are equal, round, and reactive to light. Extraocular movements intact. Conjunctiva and sclera normal. Eyelids normal. Throat: Pharynx normal. Uvula midline. Moist mucous membranes. Neck: Normal inspection. Neck supple. Full range of motion. Cardiovascular: Blood pressure readings varied, with a high of 156/90 noted. Normal heart rate and rhythm. Heart sound normal. No murmurs noted. Pulses normal throughout. Respiratory: No respiratory distress. Painless inspiration. Breath sounds normal. No wheezes/rales/rhonchi noted. No accessory muscle usage noted or decreased air movement noted. Back: Full range of motion noted. Skin: Skin warm and dry. Normal skin color. Extremities: Extremities exhibit normal range of motion. Results Reviewed Results Reviewed: Results - Home Blood Pressure Log: Patient presented a log from her personal wrist cuff device. - Readings have reportedly not exceeded 140 mmHg systolic, with low diastolic values noted (e.g., 42, 51, 56 mmHg). Coding Level of Care Code Est Pt Level 4 (94088) Complex visit Add On G2211 Diagnoses Essential hypertension I10 Problem related to health literacy Z55.6 Peripheral artery disease I73.9 Sciatica M54.30 Meniere's disease of both ears H81.03 Laterality: bilateral Additional Codes EDEL-7 Assessment Billing - EDEL-7 Assessment Tool: EDEL-7 Assessment 70963 ([id number]) PHQ-9 - 59300 - PHQ-9 Billing: Yes ([id number]) Time Spent (min) 70 Assessment & Plan Assessment & Plan (1) Essential hypertension: Code(s): I10 - Essential (primary) hypertension Category: Medical Plan: The patient presented for a blood pressure check, with in-office readings consistently elevated (e.g., 156/90 mmHg), meeting the threshold for hypertension. She exhibits significant anxiety and reluctance to accept the diagnosis or consider medication due to a traumatic past experience with her late 's treatment. She also refuses standard blood pressure measurement on the upper arm due to what she describes as agonizing pain. An option to start a low-dose blood pressure medication was offered but declined. The plan is for the patient to continue monitoring her blood pressure at home, attempt to use correct technique, and implement lifestyle changes discussed to naturally lower her blood pressure. She will return in one month for a recheck and will be seen by Dr. Damon for a second opinion. (2) Problem related to health literacy: Code(s): Z55.6 - Problems related to health literacy Category: Medical Plan: The patient holds several strong, medically inaccurate beliefs, including that her 's from pulmonary hypertension was caused by an alpha-mandy, that prednisone caused her peripheral artery disease (PAD), and that antibiotics caused her Meniere's disease. These beliefs contribute to her anxiety and resistance to recommended medical care. Education was provided to correct these misconceptions, explaining that lung infections are bacterial and that PAD is not a known side effect of prednisone. The patient was given printed information on PAD and the causes of pneumonia/bronchitis from reliable sources. (3) Peripheral artery disease: Comment: History of PAD. Pt would like to return to previous vascular provider. Code(s): I73.9 - Peripheral vascular disease, unspecified Category: Medical Plan: The patient reported histories of peripheral artery disease, Meniere's disease, and sciatica secondary to lumbar spondylolisthesis. These conditions were not on her problem list and were added for completeness. No acute management was discussed for these chronic issues, though the patient noted her sciatica is currently her worst problem and may contribute to her elevated blood pressure. (4) Sciatica: Code(s): M54.30 - Sciatica, unspecified side Category: Medical Plan: The patient reported histories of peripheral artery disease, Meniere's disease, and sciatica secondary to lumbar spondylolisthesis. These conditions were not on her problem list and were added for completeness. No acute management was discussed for these chronic issues, though the patient noted her sciatica is currently her worst problem and may contribute to her elevated blood pressure. (5) Meniere disease: Code(s): H81.09 - Meniere's disease, unspecified ear Category: Medical Qualifiers: Laterality: bilateral Qualified Code(s): H81.03 - Meniere's disease, bilateral Plan: The patient reported histories of peripheral artery disease, Meniere's disease, and sciatica secondary to lumbar spondylolisthesis. These conditions were not on her problem list and were added for completeness. No acute management was discussed for these chronic issues, though the patient noted her sciatica is currently her worst problem and may contribute to her elevated blood pressure. Plan Plan Patient was informed and verbally consented to the use of an ambient scribe for clinic note documentation during this visit. 1. Hypertension The patient presented for a blood pressure check, with in-office readings consistently elevated (e.g., 156/90 mmHg), meeting the threshold for hypertension. She exhibits significant anxiety and reluctance to accept the diagnosis or consider medication due to a traumatic past experience with her late 's treatment. She also refuses standard blood pressure measurement on the upper arm due to what she describes as agonizing pain. An option to start a low-dose blood pressure medication was offered but declined. The plan is for the patient to continue monitoring her blood pressure at home, attempt to use correct technique, and implement lifestyle changes discussed to naturally lower her blood pressure. She will return in one month for a recheck and will be seen by Dr. Hsieh for a second opinion. 2. Health Literacy And Medical Misconceptions The patient holds several strong, medically inaccurate beliefs, including that her 's from pulmonary hypertension was caused by an alpha-mandy, that prednisone caused her peripheral artery disease (PAD), and that antibiotics caused her Meniere's disease. These beliefs contribute to her anxiety and resistance to recommended medical care. Education was provided to correct these misconceptions, explaining that lung infections are bacterial and that PAD is not a known side effect of prednisone. The patient was given printed information on PAD and the causes of pneumonia/bronchitis from reliable sources. 3. Peripheral Artery Disease, Sciatica, And Meniere's Disease The patient reported histories of peripheral artery disease, Meniere's disease, and sciatica secondary to lumbar spondylolisthesis. These conditions were not on her problem list and were added for completeness. No acute management was discussed for these chronic issues, though the patient noted her sciatica is currently her worst problem and may contribute to her elevated blood pressure. Discussion Notes I discussed the patient's consistently elevated in-office blood pressure readings, noting they were above 140/90 mmHg, which puts her at risk for heart attack and stroke. I offered to start a low-dose blood pressure medication, but she declined due to significant anxiety stemming from her late 's adverse experience with antihypertensives. The patient refused a standard upper-arm blood pressure measurement, citing severe pain and sensitivity. We had a lengthy discussion about her medical beliefs, and I provided education and printed materials to correct her misconceptions that an alpha-mandy caused her 's fatal pneumonia and that prednisone caused her peripheral artery disease. We agreed that she would continue monitoring her blood pressure at home and return in one month for a follow-up visit, at which time she will see Dr. Damon. Patient Instructions: Patient Instructions - Continue to watch your blood pressure at home. - When you check your blood pressure, try to keep your arm straight and supported on a flat surface at the same level as your heart. - Please read the information I have given you about ways to lower your blood pressure naturally. - Please also read the information about peripheral artery disease and what causes bronchitis and pneumonia. - Return to the clinic in one month for a follow-up appointment. - You will meet with Dr. Hsieh at your next visit.
[2025-07-01 14:24] VITALS: BP 156/90; PULSE 90; RESP 14; TEMP 36.7; O2SAT 94; BMI 25.4
== END 2025-07-01 15:19 | disposition home or self-care (01) ==
LOC: HO.HMCSH 14:20
PROVIDERS: PCP Physician Assistant Medical; Visit Provider Physician Assistant Medical
DX: I10 Essential (primary) hypertension (principal); Z55.6 Problems related to health literacy; I73.9 Peripheral vascular disease, unspecified; M54.30 Sciatica, unspecified side; H81.03 Meniere's disease, bilateral

== ENCOUNTER → 2025-07-01 14:20 | Outpatient (BNVA) | payer MEDICARE, OTHER, SELFPAY | PROVIDERS: PCP Physician Assistant Medical; Visit Provider Physician Assistant Medical | DX: I10 Essential (primary) hypertension (principal); H81.03 Meniere's disease, bilateral; M54.30 Sciatica, unspecified side; I73.9 Peripheral vascular disease, unspecified; Z55.6 Problems related to health literacy; Z13.31 Encounter for screening for depression | CPT/HCPCS: 96127; 99212 ==